=== PATIENT | female | born 1945 | race African-American/Black ===

== ENCOUNTER 2018-04-13 10:43 | Inpatient (IN) | payer MEDICARE, MEDICAID ==
[~2018-04-13] VITALS: Ht 167.6 cm; Wt 73.5 kg
[~2018-04-13 10:43] MED LIST: APIX5TAB PO; CEFT1VIA15 IV; COR12 PO; DIGO-26 PO; FURO-151 MT; IPRA3AMP9 INH
[2018-04-13 13:24] LABS: CLARITY URINE CLEAR (CLEAR); COLOR URINE YELLOW (YELLOW); KETONES URINE NEGATIVE (NEGATIVE); LEUKOCYTE ESTERASE URINE NEGATIVE (NEGATIVE); NITRITE URINE NEGATIVE (NEGATIVE); OCCULT BLOOD URINE NEGATIVE (NEGATIVE); PROTEIN URINE NEGATIVE (NEGATIVE); SPECIFIC GRAVITY URINE 1.004 (1.005-1.030); UROBILINOGEN URINE 0.2 E.U./dL (0.2-1.0)
[2018-04-13 13:37] LABS: *AMPHETAMINES SCREEN URINE NEGATIVE (NEGATIVE); *BARBITURATES SCREEN URINE NEGATIVE (NEGATIVE); *BENZODIAZEPINES SCREEN URINE NEGATIVE (NEGATIVE); *COCAINE SCREEN URINE NEGATIVE (NEGATIVE); CANNABINOID URINE SCREEN NEGATIVE (NEGATIVE); PHENCYCLIDINE URINE SCREEN NEGATIVE (NEGATIVE)
[2018-04-13 13:38] LABS: METHADONE URINE SCREEN NEGATIVE (NEGATIVE); OPIATES URINE SCREEN NEGATIVE (NEGATIVE)
[2018-04-13] MEDS ORDERED: HYDROCODONE/ACETAMINOPHEN 5/325MG TABLET PO PRN (14:30)
[2018-04-13] MEDS ORDERED: ACETAMINOPHEN 650MG/20.3ML UDC GT PRN (14:30)
[2018-04-13] MEDS ORDERED: ACETAMINOPHEN 325MG TABLET PO PRN (14:30)
[2018-04-13] MEDS ORDERED: ONDANSETRON HCL 4MG/2ML VIAL IV PRN (14:30)
[2018-04-13] MEDS ORDERED: MAGNESIUM/ALUMINUM HYDROXIDE/SIMETHICONE 30ML UDC PO PRN (14:30)
[2018-04-13] MEDS ORDERED: ACETAMINOPHEN 650MG SUPP PR PRN (14:30)
[2018-04-13] MEDS ORDERED: IPRATROPIUM/ALBUTEROL 0.5-3(2.5)MG/3ML NEB INH PRN (14:30)
[2018-04-13] MEDS ORDERED: DOCUSATE SODIUM 100MG CAPSULE PO PRN (14:30)
[2018-04-13] MEDS ORDERED: NA PHOS,M-B/NA PHOS,DI-BA ENEMA 118ML PR PRN (14:30)
[2018-04-13] MEDS ORDERED: DIPHENHYDRAMINE 50MG/ML VIAL IV PRN (14:30)
[2018-04-13] MEDS ORDERED: GUAIFENESIN 200MG/10ML SUGAR FREE UDC PO PRN (14:30)
[2018-04-13] MEDS ORDERED: CLONIDINE 0.1MG TABLET PO PRN (14:30)
[2018-04-13 14:49] LABS: BASOPHILS % 1.1 % (0.0-2.0); EOSINOPHILS % 0.8 % (0.0-5.0); HEMATOCRIT. 31.2 % (36.0-48.0); HEMOGLOBIN. 9.9 g/dL (12.0-16.0); LYMPHOCYTES % 43.6 % (20.0-50.0); MEAN CORPUSCULAR HEMOGLOBIN 25.3 pg (28.0-32.0); MEAN CORPUSCULAR VOLUME 79.4 fL (81.0-99.0); MEAN PLATELET VOLUME 9.1 fl (7.4-10.4); MONOCYTES % 12.2 % (2.0-8.0); NEUTROPHILS % 42.3 % (40.0-76.0); PLATELET 105 x1000/uL (130-400); RED BLOOD CELL COUNT 3.93 mill/uL (4.2-5.4); RED CELL DISTRIBUTION WIDTH 20.4 % (11.6-14.6)
[2018-04-13 14:55] LABS: CHLORIDE 106 mEq/L (98-107)
[2018-04-13 14:58] LABS: INR 1.2; PARTIAL THROMBOPLASTIN TIME 30.1 sec (23.4-31.0); PROTHROMBIN TIME 12.2 sec (9.1-11.1)
[2018-04-13 14:59] LABS: ETHANOL BLOOD < 10 mg/dL
[2018-04-13] MEDS ORDERED: FUROSEMIDE 20MG/2ML VIAL IVP ONE (15:15)
[2018-04-13 15:19] LABS: DIGOXIN 0.6 ng/mL (0.9-2.0)
[2018-04-13 16:00] VITALS: BP 100/50
[2018-04-13 16:51] VITALS: BP 100/50
[2018-04-13] MEDS ORDERED: FUROSEMIDE 40MG/4ML VIAL IVP NR (17:45)
[2018-04-13] MEDS: DIGOXIN 125MCG TABLET PO SCH (18:40)
[2018-04-13 19:03] LABS: HEPATITIS B SURFACE ANTIGEN NEGATIVE
[2018-04-13 19:31] LABS: HEPATITIS B CORE AB IGM NEGATIVE
[2018-04-13 19:33] LABS: HEPATITIS A AB IGM NEGATIVE (NEGATIVE)
[2018-04-13 20:00] VITALS: BP 113/62
[2018-04-13] MEDS: CARVEDILOL 12.5MG TABLET PO SCH (20:45)
[2018-04-13] MEDS: IPRATROPIUM/ALBUTEROL 0.5-3(2.5)MG/3ML NEB HHN SCH (20:47)
[2018-04-13] MEDS: SODIUM CHLORIDE 0.9% INJ 3ML FLUSH IVF SCH (20:53)
[2018-04-13] MEDS: HYDROCODONE/ACETAMINOPHEN 10/325MG TABLET PO PRN (20:53)
[2018-04-13] MEDS: TRAZODONE HCL 50MG TABLET PO PRN (23:19)
[2018-04-14] VITALS: BP 102/59
[2018-04-14] MEDS: IPRATROPIUM/ALBUTEROL 0.5-3(2.5)MG/3ML NEB HHN SCH ×3 (00:50→20:52)
[2018-04-14 01:07] LABS: CREATINE KINASE 31 IU/L (26-192)
[2018-04-14 04:00] VITALS: BP 110/62
[2018-04-14] MEDS: SODIUM CHLORIDE 0.9% INJ 3ML FLUSH IVF SCH ×3 (05:44→21:18)
[2018-04-14] MEDS: HYDROCODONE/ACETAMINOPHEN 10/325MG TABLET PO PRN ×2 (05:44→17:33)
[2018-04-14 07:11] LABS: CHLORIDE 105 mEq/L (98-107)
[2018-04-14 07:12] LABS: BASOPHILS % 0.5 % (0.0-2.0); EOSINOPHILS % 0.8 % (0.0-5.0); HEMATOCRIT. 29.1 % (36.0-48.0); HEMOGLOBIN. 9.6 g/dL (12.0-16.0); MEAN CORPUSCULAR HEMOGLOBIN 25.6 pg (28.0-32.0); MEAN CORPUSCULAR VOLUME 78.1 fL (81.0-99.0); MEAN PLATELET VOLUME 9.8 fl (7.4-10.4); MONOCYTES % 11.1 % (2.0-8.0); NEUTROPHILS % 38.6 % (40.0-76.0); PLATELET 113 x1000/uL (130-400); RED BLOOD CELL COUNT 3.73 mill/uL (4.2-5.4)
[2018-04-14 07:21] LABS: LDL CHOLESTEROL 23 mg/dL (5-100)
[2018-04-14 07:22] LABS: CREATINE KINASE 27 IU/L (26-192); HDL CHOLESTEROL 73 mg/dL (40-59)
[2018-04-14 08:00] VITALS: BP 121/68
[2018-04-14] MEDS: FUROSEMIDE 40MG/4ML VIAL IVP SCH (09:09)
[2018-04-14] MEDS: CARVEDILOL 12.5MG TABLET PO SCH ×2 (09:09→21:20)
[2018-04-14 12:00] VITALS: BP 111/57
[2018-04-14 12:06] LABS: TOTAL IRON BINDING CAPACITY 542 ug/dL (250-450)
[2018-04-14 13:10] LABS: T4 FREE 1.44 ng/dL (0.76-1.46)
[2018-04-14 16:00] VITALS: BP 108/49
[2018-04-14 16:34] LABS: CREATINE KINASE 23 IU/L (26-192)
[2018-04-14 16:36] LABS: CREATINE KINASE MB FRACTION < 1.0 ng/mL (0.5-3.6)
[2018-04-14] MEDS: DIGOXIN 125MCG TABLET PO SCH (17:32)
[2018-04-14 20:40] VITALS: BP 127/59
[2018-04-14] MEDS: APIXABAN 5 MG TABLET PO SCH (21:13)
[2018-04-14] MEDS: TRAZODONE HCL 50MG TABLET PO PRN (21:14)
[2018-04-14] MEDS: LOSARTAN POTASSIUM 25 MG TABLET PO SCH (21:16)
[2018-04-14 23:51] LABS: CREATINE KINASE 20 IU/L (26-192)
[2018-04-14 23:52] LABS: CREATINE KINASE MB FRACTION < 1.0 ng/mL (0.5-3.6)
[2018-04-15] VITALS: BP 91/51
[2018-04-15] MEDS: IPRATROPIUM/ALBUTEROL 0.5-3(2.5)MG/3ML NEB HHN SCH ×3 (00:51→12:00)
[2018-04-15 04:00] VITALS: BP 100/57
[2018-04-15] MEDS: SODIUM CHLORIDE 0.9% INJ 3ML FLUSH IVF SCH ×2 (05:52→13:34)
[2018-04-15 07:01] LABS: CREATINE KINASE 23 IU/L (26-192)
[2018-04-15 07:02] LABS: CREATINE KINASE MB FRACTION < 1.0 ng/mL (0.5-3.6)
[2018-04-15 08:00] VITALS: BP 116/76
[2018-04-15] MEDS: APIXABAN 5 MG TABLET PO SCH ×2 (09:10→18:19)
[2018-04-15] MEDS: FUROSEMIDE 40MG/4ML VIAL IVP SCH (09:10)
[2018-04-15] MEDS: LOSARTAN POTASSIUM 25 MG TABLET PO SCH (09:11)
[2018-04-15] MEDS: CARVEDILOL 12.5MG TABLET PO SCH (09:11)
[2018-04-15] MEDS: HYDROCODONE/ACETAMINOPHEN 10/325MG TABLET PO PRN (09:12)
[2018-04-15] MEDS ORDERED: PANTOT AC/MIN OIL/PET HY-PHL OINT 52.5GM (AQUAPHOR) TOP SCH (10:45)
[2018-04-15 12:00] VITALS: BP 99/59
[2018-04-15 16:00] VITALS: BP 118/69
[2018-04-15 16:12] LABS: CHLORIDE 103 mEq/L (98-107); HEMATOCRIT. 30.7 % (36.0-48.0); HEMOGLOBIN. 9.8 g/dL (12.0-16.0); MEAN CORPUSCULAR HEMOGLOBIN 25.5 pg (28.0-32.0); MEAN CORPUSCULAR VOLUME 79.7 fL (81.0-99.0); MEAN PLATELET VOLUME 8.9 fl (7.4-10.4); PLATELET 108 x1000/uL (130-400); RED BLOOD CELL COUNT 3.84 mill/uL (4.2-5.4); RED CELL DISTRIBUTION WIDTH 21.2 % (11.6-14.6)
[2018-04-15 16:16] LABS: AMMONIA 17 uMol/L (<32)
[2018-04-15 16:23] VITALS: BP 118/69
[2018-04-15 17:28] LABS: PLATELET ESTIMATE DECREASED
[2018-04-15] MEDS: DIGOXIN 125MCG TABLET PO SCH (18:19)
[2018-04-15] MEDS ORDERED: FURO-151 MT (19:20)
[2018-04-16] MEDS ORDERED: PANTOT AC/MIN OIL/PET HY-PHL OINT 52.5GM (AQUAPHOR) TOP SCH (09:00)
== END 2018-04-15 19:50 | DRG 432 ==
LOC: ER 10:52 → EDBEDREQSVC 12:33 → 5WST 13:08 → EDBEDREQTM 13:11 → EDBEDREQ 13:11 → ENRESERV 15:25
PROVIDERS: ADMIT Family Medicine; ATTEND Family Medicine
DX: K70.31 Alcoholic cirrhosis of liver with ascites (principal); I50.21 Acute systolic (congestive) heart failure; K85.20 Alcohol induced acute pancreatitis without necrosis or infection; E11.9 Type 2 diabetes mellitus without complications; E78.5 Hyperlipidemia, unspecified; F17.200 Nicotine dependence, unspecified, uncomplicated; I48.91 Unspecified atrial fibrillation; I11.0 Hypertensive heart disease with heart failure; K80.20 Calculus of gallbladder without cholecystitis without obstruction; F10.10 Alcohol abuse, uncomplicated; B19.20 Unspecified viral hepatitis C without hepatic coma; I08.1 Rheumatic disorders of both mitral and tricuspid valves; J45.909 Unspecified asthma, uncomplicated; D25.9 Leiomyoma of uterus, unspecified; J44.9 Chronic obstructive pulmonary disease, unspecified; Z60.2 Problems related to living alone; F19.10 Other psychoactive substance abuse, uncomplicated; D69.6 Thrombocytopenia, unspecified; D63.8 Anemia in other chronic diseases classified elsewhere; Z59.0 Homelessness; Z79.899 Other long term (current) drug therapy
CPT/HCPCS: 36415; 71045; 74176; 76700; 80053; 80061; 80162; 80305; 81003; 82140; 82550; 82553; 82607; 82728; 82746; 83036; 83540; 83550; 83690; 83735; 83880; 84439; 84443; 84484; 85025; 85379; 85610; 85730; 86705; 86709; 86803; 87340; 93005; 93970; 94640; 96374; 99285; G0482; J1940; J7620; A4315

== ENCOUNTER 2018-08-24 19:07 | Inpatient (IN) | payer MEDICARE, MEDICAID ==
[~2018-08-24] VITALS: Ht 165.1 cm; Wt 83.2 kg
[~2018-08-24 19:07] MED LIST changes: -CEFT1VIA15 IV; +CLON0.1T PO; +GABA-529 PO; +HYDR-4001 PO; +LOSA25TA12 PO
[2018-08-24] MEDS ORDERED: NALOXONE HCL 0.4 MG/ML 1ML VIAL IV ONE ×2 (20:45→22:15)
[2018-08-24 21:59] LABS: HEMATOCRIT. 31.9 % (36.0-48.0); HEMOGLOBIN. 10.2 g/dL (12.0-16.0); MEAN CORPUSCULAR HEMOGLOBIN 27.5 pg (28.0-32.0); MEAN CORPUSCULAR VOLUME 86.2 fL (81.0-99.0); MEAN PLATELET VOLUME 8.8 fl (7.4-10.4); PLATELET 127 x1000/uL (130-400); RED CELL DISTRIBUTION WIDTH 20.2 % (11.6-14.6)
[2018-08-24 22:05] LABS: CHLORIDE 103 mEq/L (98-107)
[2018-08-24 22:05] LABS: CLARITY URINE CLOUDY (CLEAR); COLOR URINE DARK YELLOW (YELLOW); KETONES URINE TRACE (NEGATIVE); LEUKOCYTE ESTERASE URINE TRACE (NEGATIVE); NITRITE URINE NEGATIVE (NEGATIVE); OCCULT BLOOD URINE NEGATIVE (NEGATIVE); PROTEIN URINE 1+ (NEGATIVE)
[2018-08-24 22:07] LABS: INR 1.3; PARTIAL THROMBOPLASTIN TIME 37.2 sec (23.4-31.0)
[2018-08-24 22:08] LABS: ETHANOL BLOOD < 10 mg/dL
[2018-08-24 22:18] LABS: *AMPHETAMINES SCREEN URINE NEGATIVE (NEGATIVE); *BARBITURATES SCREEN URINE NEGATIVE (NEGATIVE); *BENZODIAZEPINES SCREEN URINE NEGATIVE (NEGATIVE)
[2018-08-24 22:20] LABS: *COCAINE SCREEN URINE NEGATIVE (NEGATIVE); CANNABINOID URINE SCREEN NEGATIVE (NEGATIVE); METHADONE URINE SCREEN NEGATIVE (NEGATIVE); OPIATES URINE SCREEN PRESUMTIVE POSITIVE (NEGATIVE); PHENCYCLIDINE URINE SCREEN NEGATIVE (NEGATIVE)
[2018-08-24 22:27] LABS: PLATELET ESTIMATE DECREASED
[2018-08-24] MEDS ORDERED: FUROSEMIDE 100MG/10ML VIAL IV STA (22:58)
[2018-08-24] MEDS ORDERED: DEXTROSE 50% WATER 50ML SYRINGE IV ONE (23:00)
[2018-08-24] MEDS ORDERED: INSULIN REGULAR (HUMULIN R) 300UNITS/3ML IV ONE (23:00)
[2018-08-25] VITALS (18 sets, daily range): BP systolic 67–136; BP diastolic 19–83
[2018-08-25] MEDS ORDERED: CLONIDINE 0.1MG TABLET PO PRN
[2018-08-25] MEDS ORDERED: LORAZEPAM 2MG/ML CPJ IV PRN
[2018-08-25] MEDS ORDERED: HYDROMORPHONE HCL/PF 2MG/ML CPJ IV PRN
[2018-08-25] MEDS ORDERED: SODIUM CHLORIDE 0.9% 1,000 ML IV SCH (03:57)
[2018-08-25] MEDS: PANTOPRAZOLE SODIUM 40 MG/VIAL IV SCH ×2 (12:48→21:05)
[2018-08-25 13:31] LABS: HEMATOCRIT. 26.9 % (36.0-48.0); HEMOGLOBIN. 8.8 g/dL (12.0-16.0); MEAN CORPUSCULAR HEMOGLOBIN 27.7 pg (28.0-32.0); MEAN CORPUSCULAR VOLUME 85.3 fL (81.0-99.0); PLATELET 140 x1000/uL (130-400); RED BLOOD CELL COUNT 3.16 mill/uL (4.2-5.4)
[2018-08-25 13:54] LABS: PLATELET ESTIMATE NORMAL
[2018-08-25 14:10] LABS: FOLIC ACID (FOLATE) SERUM 9.5 ng/mL (>5.38)
[2018-08-25 14:40] LABS: T4 FREE 1.52 ng/dL (0.76-1.46)
[2018-08-25] MEDS ORDERED: DEXTROSE 50% WATER 50ML SYRINGE IV NR (15:30)
[2018-08-25] MEDS ORDERED: SODIUM BICARBONATE 8.4% 1 MEQ/ML 50ML SYR IV NR (15:30)
[2018-08-25] MEDS ORDERED: INSULIN REGULAR (HUMULIN R) UD 100 UNITS/ML SYR IV NR (17:00)
[2018-08-25] MEDS ORDERED: SODIUM POLYSTYRENE SULFONATE 15 G/60 ML BOT PO NR (17:00)
[2018-08-25] MEDS: CEFTRIAXONE 1 G PREMIX 50 ML IV SCH (18:30)
[2018-08-25] MEDS: SODIUM CHLORIDE 0.9% 1,000 ML IV SCH ×2 (18:30→22:04)
[2018-08-25 20:39] LABS: BG BASE EXCESS -8.2 mmol/L (-2.0-2.0); BG CARBOXYHEMOGLOBIN 1.1 % (0.5-1.5); BG DEOXYHEMOGLOBIN 1.3 % (0.0-5.0); BG FRACTION INSPIRED OXYGEN 36; BG HCO3 ACT 15.9 mmol/L (22.0-26.0); BG METHEMOGLOBIN 0.2 % (0.0-1.5); BG OXYGEN SATURATION 98.7 % (92.0-98.5); BG OXYHEMOGLOBIN 97.4 % (94.0-97.0); BG PCO2 27.7 mmHg (35.0-45.0); BG PH 7.376 (7.350-7.450); BG PO2 137.7 mmHg (75.0-100.0); BG SAMPLE SITE RIGHT RADIAL; BG TOTAL HEMOGLOBIN 9.5 g/dL (12.0-18.0); BG VENT MODE NASAL CANNULA
[2018-08-25] MEDS ORDERED: PHENYLEPHRINE 20 MG in DEXT 5% WATER 498 ML IV PRN (21:30)
[2018-08-25] MEDS ORDERED: SODIUM POLYSTYRENE SULFONATE 15 G/60 ML BOT PO SCH ×2 (22:00→23:00)
[2018-08-25] MEDS ORDERED: NOREPINEPHRINE 4 MG in DEXT 5% WATER 246 ML IV PRN (23:00)
[2018-08-25 23:08] LABS: HEMATOCRIT. 30.9 % (36.0-48.0); HEMOGLOBIN. 9.9 g/dL (12.0-16.0); MEAN CORPUSCULAR HEMOGLOBIN 27.2 pg (28.0-32.0); MEAN CORPUSCULAR VOLUME 84.5 fL (81.0-99.0); MEAN PLATELET VOLUME 8.9 fl (7.4-10.4); PLATELET 140 x1000/uL (130-400); RED BLOOD CELL COUNT 3.65 mill/uL (4.2-5.4); RED CELL DISTRIBUTION WIDTH 19.5 % (11.6-14.6)
[2018-08-25 23:13] LABS: CHLORIDE 104 mEq/L (98-107)
[2018-08-25] MEDS ORDERED: SODIUM BICARBONATE 8.4% 1 MEQ/ML 50ML SYR IV SCH (23:15)
[2018-08-25 23:24] LABS: CREATINE KINASE 521 IU/L (26-192)
[2018-08-25] MEDS ORDERED: FUROSEMIDE 20MG/2ML VIAL IVP SCH (23:30)
[2018-08-25 23:51] LABS: PLATELET ESTIMATE NORMAL
[2018-08-26] VITALS (149 sets, daily range): BP systolic 65–135; BP diastolic 20–85
[2018-08-26] MEDS ORDERED: NOREPINEPHRINE 4 MG in DEXT 5% WATER 246 ML IV PRN (00:06)
[2018-08-26] MEDS ORDERED: PHENYLEPHRINE 40 MG in DEXT 5% WATER 500 ML IV ONE (00:15)
[2018-08-26] MEDS ORDERED: INSULIN REGULAR (HUMULIN R) 300UNITS/3ML IV SCH (00:30)
[2018-08-26] MEDS ORDERED: PHENYLEPHRINE 80 MG in DEXT 5% WATER 492 ML IV PRN (00:30)
[2018-08-26] MEDS ORDERED: FUROSEMIDE 40MG/4ML VIAL IVP SCH (00:30)
[2018-08-26] MEDS ORDERED: DEXTROSE 50% WATER 50ML SYRINGE IV SCH (00:30)
[2018-08-26] MEDS ORDERED: SODIUM POLYSTYRENE SULFONATE 15 G/60 ML BOT PO SCH (02:00)
[2018-08-26 02:44] LABS: BG CARBOXYHEMOGLOBIN 0.7 % (0.5-1.5); BG DEOXYHEMOGLOBIN 9.4 % (0.0-5.0); BG FRACTION INSPIRED OXYGEN 44; BG HCO3 ACT 19.3 mmol/L (22.0-26.0); BG METHEMOGLOBIN 0.3 % (0.0-1.5); BG OXYGEN SATURATION 90.5 % (92.0-98.5); BG OXYHEMOGLOBIN 89.6 % (94.0-97.0); BG PCO2 42.1 mmHg (35.0-45.0); BG PH 7.279 (7.350-7.450); BG PO2 64.9 mmHg (75.0-100.0); BG SAMPLE SITE LEFT RADIAL; BG TOTAL HEMOGLOBIN 10.4 g/dL (12.0-18.0); BG VENT MODE NASAL CANNULA
[2018-08-26] MEDS: NOREPINEPHRINE 32 MG in DEXT 5% WATER 468 ML IV PRN (03:50)
[2018-08-26] MEDS: PROPOFOL 10MG/ML 100ML 100 ML IV PRN ×2 (05:00→18:57)
[2018-08-26 05:38] LABS: BG BASE EXCESS -8.3 mmol/L (-2.0-2.0); BG CARBOXYHEMOGLOBIN 0.8 % (0.5-1.5); BG DEOXYHEMOGLOBIN 10.6 % (0.0-5.0); BG FRACTION INSPIRED OXYGEN 100; BG METHEMOGLOBIN 0.5 % (0.0-1.5); BG OXYGEN SATURATION 89.3 % (92.0-98.5); BG OXYHEMOGLOBIN 88.1 % (94.0-97.0); BG PCO2 53.7 mmHg (35.0-45.0); BG PEEP (cmH2O) 0 cmH2O; BG PH 7.188 (7.350-7.450); BG PO2 65.7 mmHg (75.0-100.0); BG SAMPLE SITE LEFT FEMORAL; BG TIDAL VOLUME(mL) 500 mL; BG TOTAL HEMOGLOBIN 11.2 g/dL (12.0-18.0); BG VENT MODE VENT - A/C; BG VENT RATE 16 set
[2018-08-26] MEDS ORDERED: SODIUM BICARBONATE 8.4% 1 MEQ/ML 50ML SYR IV NR (05:45)
[2018-08-26 06:56] LABS: HEMATOCRIT. 32.8 % (36.0-48.0); HEMOGLOBIN. 10.7 g/dL (12.0-16.0); MEAN CORPUSCULAR HEMOGLOBIN 28.1 pg (28.0-32.0); MEAN PLATELET VOLUME 8.4 fl (7.4-10.4); PLATELET 136 x1000/uL (130-400); RED BLOOD CELL COUNT 3.81 mill/uL (4.2-5.4)
[2018-08-26 08:40] LABS: BG BASE EXCESS -7.1 mmol/L (-2.0-2.0); BG CARBOXYHEMOGLOBIN 0.3 % (0.5-1.5); BG DEOXYHEMOGLOBIN 0.7 % (0.0-5.0); BG FRACTION INSPIRED OXYGEN 100; BG HCO3 ACT 19.3 mmol/L (22.0-26.0); BG METHEMOGLOBIN 0.5 % (0.0-1.5); BG OXYGEN SATURATION 99.3 % (92.0-98.5); BG OXYHEMOGLOBIN 98.5 % (94.0-97.0); BG PCO2 42.8 mmHg (35.0-45.0); BG PH 7.273 (7.350-7.450); BG PO2 231.3 mmHg (75.0-100.0); BG SAMPLE SITE RIGHT RADIAL; BG TIDAL VOLUME(mL) 500 mL; BG TOTAL HEMOGLOBIN 11.4 g/dL (12.0-18.0); BG VENT MODE VENT - A/C; BG VENT RATE 16 set
[2018-08-26] MEDS: PANTOPRAZOLE SODIUM 40 MG/VIAL IV SCH ×2 (09:31→21:13)
[2018-08-26] MEDS ORDERED: ETOMIDATE 2MG/ML 10ML VIAL IV ONE (13:32)
[2018-08-26] MEDS ORDERED: VECURONIUM BROMIDE 10 MG/VIAL IV ONE (13:32)
[2018-08-26 15:05] LABS: PLATELET ESTIMATE NORMAL
[2018-08-26] MEDS: PHENYLEPHRINE 80 MG in DEXT 5% WATER 492 ML IV PRN ×2 (15:56→23:53)
[2018-08-26] MEDS: CEFTRIAXONE 1 G PREMIX 50 ML IV SCH (18:23)
[2018-08-26] MEDS: FERROUS SULFATE 300MG/5ML UDC PO SCH ×2 (18:23→18:24)
[2018-08-26] MEDS ORDERED: PROPOFOL 10MG/ML 100ML 100 ML IV PRN (18:30)
[2018-08-26] MEDS ORDERED: VANCOMYCIN 1250MG in DEXTROSE 5% WATER 250ML IV SCH (20:00)
[2018-08-27] VITALS (120 sets, daily range): BP systolic 69–130; BP diastolic 26–85
[2018-08-27] MEDS: NOREPINEPHRINE 32 MG in DEXT 5% WATER 468 ML IV PRN (01:01)
[2018-08-27 05:20] LABS: BASOPHILS % 0.1 % (0.0-2.0); EOSINOPHILS % 0.2 % (0.0-5.0); HEMATOCRIT. 32.5 % (36.0-48.0); HEMOGLOBIN. 10.6 g/dL (12.0-16.0); LYMPHOCYTES % 7.8 % (20.0-50.0); MEAN CORPUSCULAR VOLUME 82.7 fL (81.0-99.0); MEAN PLATELET VOLUME 8.6 fl (7.4-10.4); MONOCYTES % 9.9 % (2.0-8.0); PLATELET 98 x1000/uL (130-400); RED BLOOD CELL COUNT 3.93 mill/uL (4.2-5.4); RED CELL DISTRIBUTION WIDTH 19.7 % (11.6-14.6)
[2018-08-27 05:28] LABS: CHLORIDE 104 mEq/L (98-107)
[2018-08-27 06:31] LABS: CREATINE KINASE MB FRACTION 4.5 ng/mL (0.5-3.6)
[2018-08-27] MEDS: PHENYLEPHRINE 80 MG in DEXT 5% WATER 492 ML IV PRN ×2 (07:24→15:01)
[2018-08-27 08:03] LABS: BG BASE EXCESS -2.2 mmol/L (-2.0-2.0); BG CARBOXYHEMOGLOBIN 0.6 % (0.5-1.5); BG DEOXYHEMOGLOBIN 1.2 % (0.0-5.0); BG FRACTION INSPIRED OXYGEN 65; BG METHEMOGLOBIN 0.3 % (0.0-1.5); BG OXYGEN SATURATION 98.8 % (92.0-98.5); BG OXYHEMOGLOBIN 97.9 % (94.0-97.0); BG PCO2 35.5 mmHg (35.0-45.0); BG SAMPLE SITE RIGHT BRACHIAL; BG TIDAL VOLUME(mL) 500 mL; BG TOTAL HEMOGLOBIN 11.3 g/dL (12.0-18.0); BG VENT MODE VENT - A/C; BG VENT RATE 16 set
[2018-08-27] MEDS: PANTOPRAZOLE SODIUM 40 MG/VIAL IV SCH ×2 (08:07→21:35)
[2018-08-27] MEDS ORDERED: IPRATROPIUM/ALBUTEROL 0.5-3(2.5)MG/3ML NEB HHN PRN (10:15)
[2018-08-27] MEDS ORDERED: PROPOFOL 10MG/ML 100ML 100 ML IV PRN (10:15)
[2018-08-27] MEDS: IPRATROPIUM/ALBUTEROL 0.5-3(2.5)MG/3ML NEB HHN SCH ×3 (11:35→20:42)
[2018-08-27] MEDS: FERROUS SULFATE 300MG/5ML UDC PO SCH ×3 (13:20→17:45)
[2018-08-27] MEDS ORDERED: VANCOMYCIN 1250MG in DEXTROSE 5% WATER 250ML IV NR (17:00)
[2018-08-27] MEDS: AMIODARONE HCL 900 MG in DEXT 5% WATER 482 ML IV PRN (17:20)
[2018-08-27] MEDS: CEFTRIAXONE 1 G PREMIX 50 ML IV SCH (17:28)
[2018-08-28] VITALS (77 sets, daily range): BP systolic 77–137; BP diastolic 35–74
[2018-08-28] MEDS: IPRATROPIUM/ALBUTEROL 0.5-3(2.5)MG/3ML NEB HHN SCH ×4 (00:29→12:06)
[2018-08-28] MEDS: NAFCILLIN SODIUM 2,000 MG in SODIUM CHLORIDE 0.9% 100 ML IV SCH ×3 (07:01→18:15)
[2018-08-28 08:04] LABS: HEMOGLOBIN. 10.7 g/dL (12.0-16.0); MEAN CORPUSCULAR HEMOGLOBIN 27.3 pg (28.0-32.0); MEAN CORPUSCULAR VOLUME 82.2 fL (81.0-99.0); MEAN PLATELET VOLUME 9.5 fl (7.4-10.4); PLATELET 95 x1000/uL (130-400); RED CELL DISTRIBUTION WIDTH 19.5 % (11.6-14.6)
[2018-08-28 08:49] LABS: BG BASE EXCESS -1.1 mmol/L (-2.0-2.0); BG DEOXYHEMOGLOBIN 1.5 % (0.0-5.0); BG FRACTION INSPIRED OXYGEN 45; BG HCO3 ACT 22.1 mmol/L (22.0-26.0); BG METHEMOGLOBIN 0.3 % (0.0-1.5); BG OXYGEN SATURATION 98.5 % (92.0-98.5); BG OXYHEMOGLOBIN 98.2 % (94.0-97.0); BG PCO2 31.8 mmHg (35.0-45.0); BG PH 7.459 (7.350-7.450); BG PO2 126.2 mmHg (75.0-100.0); BG SAMPLE SITE RIGHT RADIAL; BG TIDAL VOLUME(mL) 500 mL; BG TOTAL HEMOGLOBIN 11.2 g/dL (12.0-18.0); BG VENT MODE VENT - A/C; BG VENT RATE 16 set
[2018-08-28 09:46] LABS: PLATELET ESTIMATE DECREASED
[2018-08-28] MEDS: FERROUS SULFATE 300MG/5ML UDC PO SCH ×3 (09:47→18:15)
[2018-08-28] MEDS: PANTOPRAZOLE SODIUM 40 MG/VIAL IV SCH ×2 (09:47→21:19)
[2018-08-28] MEDS ORDERED: VANCOMYCIN 1 G PREMIX 200 ML IV SCH (10:00)
[2018-08-28] MEDS ORDERED: POTASSIUM CHLORIDE 20MEQ TABLET SR PO NR (11:45)
[2018-08-28] MEDS: PROPOFOL 10MG/ML 100ML 100 ML IV PRN ×2 (11:54→21:17)
[2018-08-28] MEDS: BLOOD SUGAR DIAGNOSTIC STRIP TEST SCH ×2 (12:46→18:23)
[2018-08-28] MEDS ORDERED: MAGNESIUM 2 G PREMIX 50 ML IV SCH (13:00)
[2018-08-28 14:51] LABS: HEPATITIS B SURFACE ANTIGEN NEGATIVE
[2018-08-28 15:21] LABS: HEPATITIS A AB IGM NEGATIVE (NEGATIVE)
[2018-08-28] MEDS: IPRATROPIUM BROMIDE (0.02%) 0.5MG/2.5ML NEB HHN SCH ×2 (15:41→21:01)
[2018-08-28] MEDS: NOREPINEPHRINE 32 MG in DEXT 5% WATER 468 ML IV PRN (22:28)
[2018-08-28] MEDS: PHENYLEPHRINE 80 MG in DEXT 5% WATER 492 ML IV PRN (22:32)
[2018-08-29] VITALS (52 sets, daily range): BP systolic 92–115; BP diastolic 38–69
[2018-08-29] MEDS: IPRATROPIUM BROMIDE (0.02%) 0.5MG/2.5ML NEB HHN SCH ×6 (00:42→20:33)
[2018-08-29] MEDS: NOREPINEPHRINE 32 MG in DEXT 5% WATER 468 ML IV PRN (01:01)
[2018-08-29] MEDS: PHENYLEPHRINE 80 MG in DEXT 5% WATER 492 ML IV PRN ×3 (01:02→21:38)
[2018-08-29] MEDS: NAFCILLIN SODIUM 2,000 MG in SODIUM CHLORIDE 0.9% 100 ML IV SCH ×4 (01:03→18:23)
[2018-08-29] MEDS: BLOOD SUGAR DIAGNOSTIC STRIP TEST SCH ×4 (05:34→18:03)
[2018-08-29] MEDS: PROPOFOL 10MG/ML 100ML 100 ML IV PRN ×3 (06:54→21:37)
[2018-08-29 07:42] LABS: BG FRACTION INSPIRED OXYGEN 40; BG SAMPLE SITE RIGHT RADIAL; BG TIDAL VOLUME(mL) 500 mL; BG VENT MODE VENT - A/C; BG VENT RATE 12 set
[2018-08-29] MEDS: PANTOPRAZOLE SODIUM 40 MG/VIAL IV SCH ×2 (09:42→21:38)
[2018-08-29] MEDS: FERROUS SULFATE 300MG/5ML UDC PO SCH ×3 (09:42→18:32)
[2018-08-29 11:16] LABS: BG PH 7.481 (7.350-7.450)
[2018-08-29 11:17] LABS: BG PCO2 32.9 mmHg (35.0-45.0)
[2018-08-29 11:19] LABS: BG BASE EXCESS 0.9 mmol/L (-2.0-2.0); BG TOTAL HEMOGLOBIN 10.9 g/dL (12.0-18.0)
[2018-08-29 11:20] LABS: BG CARBOXYHEMOGLOBIN 0.1 % (0.5-1.5); BG OXYHEMOGLOBIN 98.1 % (94.0-97.0)
[2018-08-29 11:22] LABS: BG OXYGEN SATURATION 98.2 % (92.0-98.5)
[2018-08-29 11:23] LABS: BG DEOXYHEMOGLOBIN 1.8 % (0.0-5.0)
[2018-08-30] VITALS (70 sets, daily range): BP systolic 74–132; BP diastolic 40–92
[2018-08-30] MEDS: BLOOD SUGAR DIAGNOSTIC STRIP TEST SCH ×4 (00:33→18:16)
[2018-08-30] MEDS: NAFCILLIN SODIUM 2,000 MG in SODIUM CHLORIDE 0.9% 100 ML IV SCH ×4 (00:33→18:19)
[2018-08-30] MEDS: IPRATROPIUM BROMIDE (0.02%) 0.5MG/2.5ML NEB HHN SCH ×6 (00:33→20:23)
[2018-08-30] MEDS: PROPOFOL 10MG/ML 100ML 100 ML IV PRN ×3 (04:49→20:15)
[2018-08-30 05:17] LABS: BASOPHILS % 0.6 % (0.0-2.0); EOSINOPHILS % 0.2 % (0.0-5.0); HEMATOCRIT. 31.8 % (36.0-48.0); HEMOGLOBIN. 10.3 g/dL (12.0-16.0); LYMPHOCYTES % 9.3 % (20.0-50.0); MEAN CORPUSCULAR HEMOGLOBIN 26.3 pg (28.0-32.0); MEAN CORPUSCULAR VOLUME 81.4 fL (81.0-99.0); MEAN PLATELET VOLUME 8.3 fl (7.4-10.4); MONOCYTES % 10.5 % (2.0-8.0); NEUTROPHILS % 79.4 % (40.0-76.0); PLATELET 83 x1000/uL (130-400); RED BLOOD CELL COUNT 3.91 mill/uL (4.2-5.4); RED CELL DISTRIBUTION WIDTH 19.9 % (11.6-14.6)
[2018-08-30 05:24] LABS: CHLORIDE 102 mEq/L (98-107)
[2018-08-30 05:30] LABS: PHOSPHORUS 1.6 mg/dL (2.5-4.9)
[2018-08-30] MEDS: PHENYLEPHRINE 80 MG in DEXT 5% WATER 492 ML IV PRN ×2 (05:59→18:16)
[2018-08-30 08:17] LABS: HIV SCREEN 4G Non Reactive (Non Reactive)
[2018-08-30 09:49] LABS: BG BASE EXCESS 4.3 mmol/L (-2.0-2.0); BG CARBOXYHEMOGLOBIN 0.9 % (0.5-1.5); BG DEOXYHEMOGLOBIN 1.3 % (0.0-5.0); BG FRACTION INSPIRED OXYGEN 40; BG HCO3 ACT 27.8 mmol/L (22.0-26.0); BG METHEMOGLOBIN 0.4 % (0.0-1.5); BG OXYGEN SATURATION 98.7 % (92.0-98.5); BG OXYHEMOGLOBIN 97.4 % (94.0-97.0); BG PCO2 37.7 mmHg (35.0-45.0); BG PH 7.486 (7.350-7.450); BG PO2 123.2 mmHg (75.0-100.0); BG SAMPLE SITE RIGHT RADIAL; BG TIDAL VOLUME(mL) 500 mL; BG TOTAL HEMOGLOBIN 11.2 g/dL (12.0-18.0); BG VENT MODE VENT - A/C; BG VENT RATE 12 set
[2018-08-30] MEDS: PANTOPRAZOLE SODIUM 40 MG/VIAL IV SCH ×2 (10:14→20:14)
[2018-08-30] MEDS: FERROUS SULFATE 300MG/5ML UDC PO SCH ×3 (10:14→18:20)
[2018-08-30] MEDS: POTASSIUM CHLORIDE 20MEQ/PACKET NG SCH ×2 (10:15→18:16)
[2018-08-30] MEDS ORDERED: POTASSIUM PHOS,M-BASIC-D-BASIC 20 MMOL in DEXT 5% WATER 243.3333 ML IV ONE (13:00)
[2018-08-30] MEDS: MIDODRINE HCL 5MG TABLET PO SCH ×2 (13:11→17:00)
[2018-08-30] MEDS: POTASSIUM PHOS,M-BASIC-D-BASIC 20 MMOL in DEXT 5% WATER 243.3333 ML IV SCH ×2 (15:50→20:14)
[2018-08-30] MEDS: ACETAMINOPHEN 325MG TABLET PO PRN (18:15)
[2018-08-30] MEDS: POTASSIUM CHLORIDE 20MEQ/PACKET PO SCH (20:14)
[2018-08-31] VITALS (86 sets, daily range): BP systolic 72–119; BP diastolic 35–75
[2018-08-31] MEDS: IPRATROPIUM BROMIDE (0.02%) 0.5MG/2.5ML NEB HHN SCH ×6 (00:24→20:30)
[2018-08-31] MEDS: NAFCILLIN SODIUM 2,000 MG in SODIUM CHLORIDE 0.9% 100 ML IV SCH ×5 (00:33→23:46)
[2018-08-31] MEDS: BLOOD SUGAR DIAGNOSTIC STRIP TEST SCH ×5 (00:33→23:46)
[2018-08-31] MEDS: PROPOFOL 10MG/ML 100ML 100 ML IV PRN (03:05)
[2018-08-31] MEDS: PHENYLEPHRINE 80 MG in DEXT 5% WATER 492 ML IV PRN ×3 (03:12→22:49)
[2018-08-31] MEDS: NOREPINEPHRINE 32 MG in DEXT 5% WATER 468 ML IV PRN (03:15)
[2018-08-31 07:43] LABS: BG BASE EXCESS 4.2 mmol/L (-2.0-2.0); BG CARBOXYHEMOGLOBIN 0.8 % (0.5-1.5); BG DEOXYHEMOGLOBIN 3.9 % (0.0-5.0); BG FRACTION INSPIRED OXYGEN 40; BG HCO3 ACT 26.2 mmol/L (22.0-26.0); BG METHEMOGLOBIN 0.3 % (0.0-1.5); BG OXYGEN SATURATION 96.1 % (92.0-98.5); BG PCO2 30.9 mmHg (35.0-45.0); BG PH 7.546 (7.350-7.450); BG PO2 69.6 mmHg (75.0-100.0); BG SAMPLE SITE RIGHT BRACHIAL; BG TIDAL VOLUME(mL) 500 mL; BG TOTAL HEMOGLOBIN 11.8 g/dL (12.0-18.0); BG VENT MODE VENT - A/C; BG VENT RATE 12 set
[2018-08-31 08:14] LABS: BASOPHILS % 1.3 % (0.0-2.0); EOSINOPHILS % 0.1 % (0.0-5.0); HEMATOCRIT. 32.3 % (36.0-48.0); HEMOGLOBIN. 10.6 g/dL (12.0-16.0); LYMPHOCYTES % 11.5 % (20.0-50.0); MEAN CORPUSCULAR VOLUME 82.5 fL (81.0-99.0); MEAN PLATELET VOLUME 8.9 fl (7.4-10.4); MONOCYTES % 8.1 % (2.0-8.0); PLATELET 106 x1000/uL (130-400); RED BLOOD CELL COUNT 3.92 mill/uL (4.2-5.4); RED CELL DISTRIBUTION WIDTH 20.4 % (11.6-14.6)
[2018-08-31 08:22] LABS: CHLORIDE 102 mEq/L (98-107)
[2018-08-31] MEDS: PANTOPRAZOLE SODIUM 40 MG/VIAL IV SCH ×2 (08:42→22:49)
[2018-08-31] MEDS: POTASSIUM CHLORIDE 20MEQ/PACKET PO SCH (08:42)
[2018-08-31] MEDS: MIDODRINE HCL 5MG TABLET PO SCH ×3 (08:42→17:39)
[2018-08-31] MEDS: FERROUS SULFATE 300MG/5ML UDC PO SCH ×3 (08:42→17:40)
[2018-08-31] MEDS ORDERED: PROPOFOL 10MG/ML 100ML 100 ML IV PRN (10:45)
[2018-08-31] MEDS ORDERED: LORAZEPAM 2MG/ML CPJ IV PRN (10:45)
[2018-08-31] MEDS ORDERED: LACTOBACILLUS GG CAPSULE PO SCH (16:45)
[2018-08-31] MEDS: LACTULOSE 20G/30ML UDC PO SCH (17:40)
[2018-08-31] MEDS: ONDANSETRON HCL 4MG/2ML INJ IV PRN (23:45)
[2018-09-01] VITALS (89 sets, daily range): BP systolic 78–135; BP diastolic 40–81
[2018-09-01] MEDS: IPRATROPIUM BROMIDE (0.02%) 0.5MG/2.5ML NEB HHN SCH ×6 (04:36→22:14)
[2018-09-01 05:35] LABS: BASOPHILS % 1.6 % (0.0-2.0); EOSINOPHILS % 0.1 % (0.0-5.0); HEMATOCRIT. 32.3 % (36.0-48.0); HEMOGLOBIN. 10.4 g/dL (12.0-16.0); LYMPHOCYTES % 8.4 % (20.0-50.0); MEAN CORPUSCULAR HEMOGLOBIN 26.5 pg (28.0-32.0); MEAN PLATELET VOLUME 8.9 fl (7.4-10.4); MONOCYTES % 6.8 % (2.0-8.0); NEUTROPHILS % 83.1 % (40.0-76.0); PLATELET 116 x1000/uL (130-400); RED BLOOD CELL COUNT 3.94 mill/uL (4.2-5.4); RED CELL DISTRIBUTION WIDTH 20.2 % (11.6-14.6)
[2018-09-01 05:42] LABS: CHLORIDE 101 mEq/L (98-107)
[2018-09-01] MEDS: PHENYLEPHRINE 80 MG in DEXT 5% WATER 492 ML IV PRN ×3 (06:37→21:37)
[2018-09-01] MEDS: NAFCILLIN SODIUM 2,000 MG in SODIUM CHLORIDE 0.9% 100 ML IV SCH ×4 (06:38→23:45)
[2018-09-01] MEDS: BLOOD SUGAR DIAGNOSTIC STRIP TEST SCH ×4 (06:38→23:46)
[2018-09-01] MEDS: POTASSIUM CHLORIDE 20MEQ/PACKET PO SCH (07:14)
[2018-09-01 08:36] LABS: BG BASE EXCESS 2.7 mmol/L (-2.0-2.0); BG CARBOXYHEMOGLOBIN 0.1 % (0.5-1.5); BG DEOXYHEMOGLOBIN 1.1 % (0.0-5.0); BG FRACTION INSPIRED OXYGEN 40; BG METHEMOGLOBIN 0.3 % (0.0-1.5); BG OXYGEN SATURATION 98.9 % (92.0-98.5); BG OXYHEMOGLOBIN 98.5 % (94.0-97.0); BG PCO2 30.7 mmHg (35.0-45.0); BG PH 7.529 (7.350-7.450); BG PO2 162.8 mmHg (75.0-100.0); BG SAMPLE SITE LEFT RADIAL; BG TIDAL VOLUME(mL) 500 mL; BG TOTAL HEMOGLOBIN 10.7 g/dL (12.0-18.0); BG VENT MODE VENT - A/C; BG VENT RATE 14 set
[2018-09-01] MEDS: LACTULOSE 20G/30ML UDC PO SCH (09:16)
[2018-09-01] MEDS: FERROUS SULFATE 300MG/5ML UDC PO SCH ×3 (09:16→17:11)
[2018-09-01] MEDS: PANTOPRAZOLE SODIUM 40 MG/VIAL IV SCH ×2 (09:16→21:23)
[2018-09-01] MEDS ORDERED: LORAZEPAM 2MG/ML CPJ IV PRN (10:45)
[2018-09-01] MEDS: ENOXAPARIN 100MG/ML SYR SUBCUT SCH ×2 (14:16→23:54)
[2018-09-01] MEDS: MIDODRINE HCL 5MG TABLET PO SCH ×2 (14:17→17:11)
[2018-09-01] MEDS ORDERED: POTASSIUM CHLORIDE 20MEQ/PACKET PO NR (15:45)
[2018-09-01] MEDS: FUROSEMIDE 40MG/4ML VIAL IVP SCH (17:11)
[2018-09-02] VITALS (86 sets, daily range): BP systolic 75–133; BP diastolic 35–77
[2018-09-02] MEDS: IPRATROPIUM BROMIDE (0.02%) 0.5MG/2.5ML NEB HHN SCH ×6 (00:22→20:29)
[2018-09-02] MEDS: NOREPINEPHRINE 32 MG in DEXT 5% WATER 468 ML IV PRN (01:27)
[2018-09-02] MEDS: NAFCILLIN SODIUM 2,000 MG in SODIUM CHLORIDE 0.9% 100 ML IV SCH ×3 (05:32→17:58)
[2018-09-02] MEDS: BLOOD SUGAR DIAGNOSTIC STRIP TEST SCH ×3 (05:33→17:58)
[2018-09-02] MEDS: PHENYLEPHRINE 80 MG in DEXT 5% WATER 492 ML IV PRN ×2 (05:35→14:36)
[2018-09-02 06:42] LABS: BASOPHILS % 0.6 % (0.0-2.0); EOSINOPHILS % 0.3 % (0.0-5.0); HEMATOCRIT. 31.1 % (36.0-48.0); HEMOGLOBIN. 10.1 g/dL (12.0-16.0); LYMPHOCYTES % 7.9 % (20.0-50.0); MEAN CORPUSCULAR HEMOGLOBIN 27.1 pg (28.0-32.0); MEAN CORPUSCULAR VOLUME 83.7 fL (81.0-99.0); MEAN PLATELET VOLUME 9.1 fl (7.4-10.4); MONOCYTES % 7.6 % (2.0-8.0); NEUTROPHILS % 83.6 % (40.0-76.0); PLATELET 164 x1000/uL (130-400); RED BLOOD CELL COUNT 3.72 mill/uL (4.2-5.4); RED CELL DISTRIBUTION WIDTH 21.3 % (11.6-14.6)
[2018-09-02 06:48] LABS: CHLORIDE 103 mEq/L (98-107)
[2018-09-02 08:43] LABS: BG BASE EXCESS 2.8 mmol/L (-2.0-2.0); BG CARBOXYHEMOGLOBIN 0.6 % (0.5-1.5); BG FRACTION INSPIRED OXYGEN 40; BG METHEMOGLOBIN 0.3 % (0.0-1.5); BG OXYHEMOGLOBIN 98.1 % (94.0-97.0); BG PCO2 34.8 mmHg (35.0-45.0); BG PH 7.492 (7.350-7.450); BG PO2 134.8 mmHg (75.0-100.0); BG SAMPLE SITE RIGHT RADIAL; BG TIDAL VOLUME(mL) 500 mL; BG TOTAL HEMOGLOBIN 10.3 g/dL (12.0-18.0); BG VENT MODE VENT - A/C; BG VENT RATE 10 set
[2018-09-02] MEDS: POTASSIUM CHLORIDE 20MEQ/PACKET PO SCH ×2 (08:58→16:13)
[2018-09-02] MEDS: PANTOPRAZOLE SODIUM 40 MG/VIAL IV SCH ×2 (08:58→21:32)
[2018-09-02] MEDS: LACTULOSE 20G/30ML UDC PO SCH ×2 (08:58→16:12)
[2018-09-02] MEDS: FERROUS SULFATE 300MG/5ML UDC PO SCH ×3 (08:58→17:58)
[2018-09-02] MEDS: FUROSEMIDE 40MG/4ML VIAL IVP SCH (08:58)
[2018-09-02] MEDS: MIDODRINE HCL 5MG TABLET PO SCH ×3 (08:59→16:13)
[2018-09-02] MEDS: ENOXAPARIN 100MG/ML SYR SUBCUT SCH (12:30)
[2018-09-02] MEDS ORDERED: MAGNESIUM 2 G PREMIX 50 ML IV SCH (16:00)
[2018-09-03] VITALS (92 sets, daily range): BP systolic 81–121; BP diastolic 40–88
[2018-09-03] MEDS: BLOOD SUGAR DIAGNOSTIC STRIP TEST SCH ×4 (00:09→17:50)
[2018-09-03] MEDS: NAFCILLIN SODIUM 2,000 MG in SODIUM CHLORIDE 0.9% 100 ML IV SCH ×4 (00:20→18:02)
[2018-09-03] MEDS: ENOXAPARIN 100MG/ML SYR SUBCUT SCH ×2 (00:20→13:33)
[2018-09-03] MEDS: IPRATROPIUM BROMIDE (0.02%) 0.5MG/2.5ML NEB HHN SCH ×6 (00:27→20:44)
[2018-09-03] MEDS: DEXTROSE 50% WATER 50ML SYRINGE IV PRN ×2 (06:11→06:39)
[2018-09-03 07:51] LABS: BG BASE EXCESS 2.1 mmol/L (-2.0-2.0); BG CARBOXYHEMOGLOBIN 0.4 % (0.5-1.5); BG DEOXYHEMOGLOBIN 1.4 % (0.0-5.0); BG FRACTION INSPIRED OXYGEN 40; BG HCO3 ACT 25.9 mmol/L (22.0-26.0); BG METHEMOGLOBIN 0.2 % (0.0-1.5); BG OXYGEN SATURATION 98.6 % (92.0-98.5); BG PH 7.463 (7.350-7.450); BG PO2 131.4 mmHg (75.0-100.0); BG SAMPLE SITE RIGHT RADIAL; BG TIDAL VOLUME(mL) 500 mL; BG TOTAL HEMOGLOBIN 8.7 g/dL (12.0-18.0); BG VENT MODE VENT - A/C; BG VENT RATE 10 set
[2018-09-03] MEDS: FERROUS SULFATE 300MG/5ML UDC PO SCH ×3 (08:40→18:04)
[2018-09-03] MEDS: POTASSIUM CHLORIDE 20MEQ/PACKET PO SCH ×2 (08:40→17:08)
[2018-09-03] MEDS: PANTOPRAZOLE SODIUM 40 MG/VIAL IV SCH ×2 (08:40→21:31)
[2018-09-03] MEDS: FUROSEMIDE 40MG/4ML VIAL IVP SCH (08:40)
[2018-09-03] MEDS: LACTULOSE 20G/30ML UDC PO SCH ×2 (08:40→17:08)
[2018-09-03] MEDS: MIDODRINE HCL 5MG TABLET PO SCH ×3 (08:41→17:09)
[2018-09-03 16:15] LABS: BG BASE EXCESS 1.9 mmol/L (-2.0-2.0); BG CARBOXYHEMOGLOBIN 0.3 % (0.5-1.5); BG DEOXYHEMOGLOBIN 1.3 % (0.0-5.0); BG FRACTION INSPIRED OXYGEN 40; BG HCO3 ACT 25.3 mmol/L (22.0-26.0); BG METHEMOGLOBIN 0.4 % (0.0-1.5); BG OXYGEN SATURATION 98.7 % (92.0-98.5); BG PCO2 34.9 mmHg (35.0-45.0); BG PH 7.479 (7.350-7.450); BG PO2 125.4 mmHg (75.0-100.0); BG PRESSURE SUPPORT 12; BG SAMPLE SITE RIGHT RADIAL; BG TIDAL VOLUME(mL) 500 mL; BG TOTAL HEMOGLOBIN 9.3 g/dL (12.0-18.0); BG VENT MODE VENT - SIMV; BG VENT RATE 8 set
[2018-09-03] MEDS: PHENYLEPHRINE 40 MG in DEXT 5% WATER 246 ML IV PRN (20:44)
[2018-09-04] VITALS (93 sets, daily range): BP systolic 74–126; BP diastolic 42–82
[2018-09-04] MEDS: IPRATROPIUM BROMIDE (0.02%) 0.5MG/2.5ML NEB HHN SCH ×6 (00:31→20:44)
[2018-09-04] MEDS: ENOXAPARIN 100MG/ML SYR SUBCUT SCH ×2 (00:34→13:04)
[2018-09-04] MEDS: BLOOD SUGAR DIAGNOSTIC STRIP TEST SCH ×5 (00:35→23:39)
[2018-09-04] MEDS: NAFCILLIN SODIUM 2,000 MG in SODIUM CHLORIDE 0.9% 100 ML IV SCH ×4 (00:35→19:25)
[2018-09-04] MEDS: PHENYLEPHRINE 40 MG in DEXT 5% WATER 246 ML IV PRN (02:30)
[2018-09-04 05:35] LABS: PROTHROMBIN TIME 10.4 sec (9.1-11.1)
[2018-09-04] MEDS: LACTULOSE 20G/30ML UDC PO SCH ×2 (08:09→17:00)
[2018-09-04] MEDS: FERROUS SULFATE 300MG/5ML UDC PO SCH ×3 (08:09→17:56)
[2018-09-04] MEDS: PANTOPRAZOLE SODIUM 40 MG/VIAL IV SCH ×2 (08:09→21:13)
[2018-09-04] MEDS: POTASSIUM CHLORIDE 20MEQ/PACKET PO SCH ×2 (08:09→17:00)
[2018-09-04] MEDS: FUROSEMIDE 40MG/4ML VIAL IVP SCH (08:09)
[2018-09-04] MEDS: MIDODRINE HCL 5MG TABLET PO SCH ×3 (08:10→17:00)
[2018-09-04 08:41] LABS: BG BASE EXCESS 2.1 mmol/L (-2.0-2.0); BG CARBOXYHEMOGLOBIN 0.4 % (0.5-1.5); BG DEOXYHEMOGLOBIN 1.4 % (0.0-5.0); BG FRACTION INSPIRED OXYGEN 40; BG HCO3 ACT 25.9 mmol/L (22.0-26.0); BG METHEMOGLOBIN 0.2 % (0.0-1.5); BG OXYGEN SATURATION 98.6 % (92.0-98.5); BG PH 7.463 (7.350-7.450); BG PO2 131.4 mmHg (75.0-100.0); BG SAMPLE SITE RIGHT RADIAL; BG TIDAL VOLUME(mL) 500 mL; BG TOTAL HEMOGLOBIN 8.7 g/dL (12.0-18.0); BG VENT MODE VENT - A/C; BG VENT RATE 10 set
[2018-09-04 09:28] LABS: BG BASE EXCESS 1.7 mmol/L (-2.0-2.0); BG CARBOXYHEMOGLOBIN 0.4 % (0.5-1.5); BG DEOXYHEMOGLOBIN 1.3 % (0.0-5.0); BG FRACTION INSPIRED OXYGEN 40; BG METHEMOGLOBIN 0.3 % (0.0-1.5); BG OXYGEN SATURATION 98.7 % (92.0-98.5); BG PCO2 34.4 mmHg (35.0-45.0); BG SAMPLE SITE RIGHT RADIAL; BG TIDAL VOLUME(mL) 500 mL; BG TOTAL HEMOGLOBIN 9.1 g/dL (12.0-18.0); BG VENT MODE VENT - SIMV; BG VENT RATE 4 set
[2018-09-04 11:31] LABS: BASOPHILS % 0.4 % (0.0-2.0); EOSINOPHILS % 0.2 % (0.0-5.0); HEMATOCRIT. 31.1 % (36.0-48.0); HEMOGLOBIN. 9.9 g/dL (12.0-16.0); LYMPHOCYTES % 9.7 % (20.0-50.0); MEAN CORPUSCULAR HEMOGLOBIN 27.4 pg (28.0-32.0); MEAN CORPUSCULAR VOLUME 86.5 fL (81.0-99.0); MONOCYTES % 6.5 % (2.0-8.0); NEUTROPHILS % 83.2 % (40.0-76.0); RED CELL DISTRIBUTION WIDTH 21.6 % (11.6-14.6)
[2018-09-04 11:32] LABS: CHLORIDE 109 mEq/L (98-107)
[2018-09-04 11:38] LABS: PHOSPHORUS 1.7 mg/dL (2.5-4.9)
[2018-09-04 12:53] LABS: MEAN PLATELET VOLUME 9.2 fl (7.4-10.4); PLATELET 273 x1000/uL (130-400)
[2018-09-04 13:24] LABS: BG BASE EXCESS 1.3 mmol/L (-2.0-2.0); BG CARBOXYHEMOGLOBIN 0.1 % (0.5-1.5); BG DEOXYHEMOGLOBIN 1.7 % (0.0-5.0); BG FRACTION INSPIRED OXYGEN 40; BG HCO3 ACT 24.6 mmol/L (22.0-26.0); BG METHEMOGLOBIN 0.3 % (0.0-1.5); BG OXYGEN SATURATION 98.3 % (92.0-98.5); BG OXYHEMOGLOBIN 97.9 % (94.0-97.0); BG PCO2 33.9 mmHg (35.0-45.0); BG PH 7.479 (7.350-7.450); BG PO2 112.5 mmHg (75.0-100.0); BG PRESSURE SUPPORT 8; BG SAMPLE SITE RIGHT RADIAL; BG TOTAL HEMOGLOBIN 9.3 g/dL (12.0-18.0); BG VENT MODE VENT - CPAP
[2018-09-05] VITALS (88 sets, daily range): BP systolic 78–118; BP diastolic 17–78
[2018-09-05] MEDS: IPRATROPIUM BROMIDE (0.02%) 0.5MG/2.5ML NEB HHN SCH ×6 (00:44→20:44)
[2018-09-05] MEDS: ENOXAPARIN 100MG/ML SYR SUBCUT SCH (00:53)
[2018-09-05] MEDS: NAFCILLIN SODIUM 2,000 MG in SODIUM CHLORIDE 0.9% 100 ML IV SCH ×4 (00:53→19:58)
[2018-09-05] MEDS: DEXTROSE 50% WATER 50ML SYRINGE IV PRN (05:25)
[2018-09-05] MEDS: BLOOD SUGAR DIAGNOSTIC STRIP TEST SCH ×3 (05:25→18:00)
[2018-09-05 05:43] LABS: CHLORIDE 108 mEq/L (98-107)
[2018-09-05 05:48] LABS: EOSINOPHILS % 0.5 % (0.0-5.0); HEMATOCRIT. 29.4 % (36.0-48.0); HEMOGLOBIN. 9.4 g/dL (12.0-16.0); LYMPHOCYTES % 17.5 % (20.0-50.0); MEAN CORPUSCULAR HEMOGLOBIN 27.5 pg (28.0-32.0); MEAN CORPUSCULAR VOLUME 86.2 fL (81.0-99.0); MEAN PLATELET VOLUME 9.4 fl (7.4-10.4); MONOCYTES % 8.9 % (2.0-8.0); NEUTROPHILS % 72.1 % (40.0-76.0); PLATELET 233 x1000/uL (130-400); RED BLOOD CELL COUNT 3.41 mill/uL (4.2-5.4); RED CELL DISTRIBUTION WIDTH 21.6 % (11.6-14.6)
[2018-09-05 05:56] LABS: PHOSPHORUS 2.5 mg/dL (2.5-4.9)
[2018-09-05] MEDS: PANTOPRAZOLE SODIUM 40 MG/VIAL IV SCH ×2 (12:24→21:32)
[2018-09-05] MEDS: POTASSIUM CHLORIDE 20MEQ/PACKET PO SCH ×2 (12:25→18:11)
[2018-09-05] MEDS: LACTULOSE 20G/30ML UDC PO SCH ×2 (12:26→18:07)
[2018-09-05] MEDS: MIDODRINE HCL 5MG TABLET PO SCH ×3 (12:26→18:12)
[2018-09-05] MEDS: FUROSEMIDE 40MG/4ML VIAL IVP SCH (12:26)
[2018-09-05] MEDS: FERROUS SULFATE 300MG/5ML UDC PO SCH ×3 (12:27→18:06)
[2018-09-05] MEDS: AMIODARONE HCL 900 MG in DEXT 5% WATER 482 ML IV PRN (13:34)
[2018-09-05] MEDS: ENOXAPARIN 80MG/0.8ML SYR SUBCUT SCH (13:52)
[2018-09-05] MEDS ORDERED: POTASSIUM CHLORIDE INJ 40 MEQ in DEXT 5% WATER 250 ML IV SCH (15:00)
[2018-09-05] MEDS: ACETYLCYSTEINE 100MG/ML 10% VIAL 4ML INH SCH (16:02)
[2018-09-05] MEDS: PHENYLEPHRINE 40 MG in DEXT 5% WATER 246 ML IV PRN (18:06)
[2018-09-06] VITALS (59 sets, daily range): BP systolic 87–133; BP diastolic 49–95
[2018-09-06] MEDS: IPRATROPIUM BROMIDE (0.02%) 0.5MG/2.5ML NEB HHN SCH ×7 (00:28→23:54)
[2018-09-06] MEDS: ACETYLCYSTEINE 100MG/ML 10% VIAL 4ML INH SCH ×4 (00:29→23:54)
[2018-09-06] MEDS: NAFCILLIN SODIUM 2,000 MG in SODIUM CHLORIDE 0.9% 100 ML IV SCH ×4 (01:42→18:00)
[2018-09-06] MEDS: ENOXAPARIN 80MG/0.8ML SYR SUBCUT SCH ×2 (01:42→11:57)
[2018-09-06] MEDS: FERROUS SULFATE 300MG/5ML UDC PO SCH ×3 (08:02→17:06)
[2018-09-06] MEDS: LACTULOSE 20G/30ML UDC PO SCH ×2 (08:02→17:06)
[2018-09-06] MEDS: PANTOPRAZOLE SODIUM 40 MG/VIAL IV SCH ×2 (08:02→20:59)
[2018-09-06] MEDS: FUROSEMIDE 40MG/4ML VIAL IVP SCH (08:02)
[2018-09-06] MEDS: POTASSIUM CHLORIDE 20MEQ/PACKET PO SCH ×2 (08:03→17:06)
[2018-09-06] MEDS: MIDODRINE HCL 5MG TABLET PO SCH ×3 (08:03→17:06)
[2018-09-06] MEDS: BLOOD SUGAR DIAGNOSTIC STRIP TEST SCH ×3 (11:29→17:06)
[2018-09-06] MEDS: AMIODARONE HCL 900 MG in DEXT 5% WATER 482 ML IV PRN (12:09)
[2018-09-06] MEDS: FLUDROCORTISONE ACETATE 0.1MG TABLET PO SCH (17:06)
[2018-09-07] VITALS (48 sets, daily range): BP systolic 92–131; BP diastolic 46–105
[2018-09-07] MEDS: NAFCILLIN SODIUM 2,000 MG in SODIUM CHLORIDE 0.9% 100 ML IV SCH ×4 (00:50→21:04)
[2018-09-07] MEDS: ENOXAPARIN 80MG/0.8ML SYR SUBCUT SCH ×2 (00:51→14:19)
[2018-09-07] MEDS: BLOOD SUGAR DIAGNOSTIC STRIP TEST SCH ×4 (00:51→17:41)
[2018-09-07] MEDS: IPRATROPIUM BROMIDE (0.02%) 0.5MG/2.5ML NEB HHN SCH ×5 (04:05→20:50)
[2018-09-07 06:41] LABS: HEMATOCRIT 26.7 % (36.0-48.0); HEMOGLOBIN 8.7 g/dL (12.0-16.0); MEAN CORPUSCULAR HEMOGLOBIN 28.3 pg (28.0-32.0); MEAN CORPUSCULAR VOLUME 86.3 fL (81.0-99.0); PLATELET 374 x1000/uL (130-400); RED BLOOD CELL COUNT 3.09 mill/uL (4.2-5.4); RED CELL DISTRIBUTION WIDTH 23.8 % (11.6-14.6)
[2018-09-07 06:51] LABS: CHLORIDE 110 mEq/L (98-107)
[2018-09-07] MEDS: FERROUS SULFATE 300MG/5ML UDC PO SCH ×3 (08:20→17:40)
[2018-09-07] MEDS: ACETYLCYSTEINE 100MG/ML 10% VIAL 4ML INH SCH ×2 (08:53→15:00)
[2018-09-07] MEDS: PANTOPRAZOLE SODIUM 40 MG/VIAL IV SCH ×2 (09:00→21:04)
[2018-09-07] MEDS: FUROSEMIDE 40MG/4ML VIAL IVP SCH (09:00)
[2018-09-07] MEDS: LACTULOSE 20G/30ML UDC PO SCH ×2 (09:36→17:00)
[2018-09-07] MEDS: MIDODRINE HCL 5MG TABLET PO SCH ×3 (09:36→17:00)
[2018-09-07] MEDS: FLUDROCORTISONE ACETATE 0.1MG TABLET PO SCH (09:36)
[2018-09-07] MEDS: POTASSIUM CHLORIDE 20MEQ/PACKET PO SCH ×2 (09:37→17:00)
[2018-09-07] MEDS: AMIODARONE HCL 900 MG in DEXT 5% WATER 482 ML IV PRN (18:00)
[2018-09-08] VITALS (28 sets, daily range): BP systolic 89–134; BP diastolic 53–86
[2018-09-08] MEDS: IPRATROPIUM BROMIDE (0.02%) 0.5MG/2.5ML NEB HHN SCH ×6 (00:25→20:38)
[2018-09-08] MEDS: ACETYLCYSTEINE 100MG/ML 10% VIAL 4ML INH SCH ×3 (00:26→12:00)
[2018-09-08] MEDS: ENOXAPARIN 80MG/0.8ML SYR SUBCUT SCH ×2 (01:00→13:03)
[2018-09-08] MEDS: NAFCILLIN SODIUM 2,000 MG in SODIUM CHLORIDE 0.9% 100 ML IV SCH ×4 (01:05→19:30)
[2018-09-08] MEDS: BLOOD SUGAR DIAGNOSTIC STRIP TEST SCH ×4 (05:51→18:44)
[2018-09-08] MEDS: FUROSEMIDE 40MG/4ML VIAL IVP SCH (08:49)
[2018-09-08] MEDS: LACTULOSE 20G/30ML UDC PO SCH (08:49)
[2018-09-08] MEDS: FERROUS SULFATE 300MG/5ML UDC PO SCH ×2 (08:49→13:02)
[2018-09-08] MEDS: FLUDROCORTISONE ACETATE 0.1MG TABLET PO SCH (08:49)
[2018-09-08] MEDS: PANTOPRAZOLE SODIUM 40 MG/VIAL IV SCH ×2 (08:49→21:40)
[2018-09-08] MEDS: MIDODRINE HCL 5MG TABLET PO SCH ×3 (08:50→18:40)
[2018-09-08] MEDS: POTASSIUM CHLORIDE 20MEQ/PACKET PO SCH (08:50)
[2018-09-08] MEDS: AMIODARONE HCL 200 MG TABLET PO SCH (11:42)
[2018-09-08 12:02] LABS: HEMATOCRIT 26.8 % (36.0-48.0); HEMOGLOBIN 8.6 g/dL (12.0-16.0); MEAN CORPUSCULAR HEMOGLOBIN 28.1 pg (28.0-32.0); MEAN CORPUSCULAR VOLUME 87.7 fL (81.0-99.0); PLATELET 401 x1000/uL (130-400); RED BLOOD CELL COUNT 3.05 mill/uL (4.2-5.4); RED CELL DISTRIBUTION WIDTH 25.2 % (11.6-14.6)
[2018-09-08] MEDS: ACETAMINOPHEN 325MG TABLET PO PRN ×2 (13:51→18:40)
[2018-09-08] MEDS: DEXTROSE 50% WATER 50ML SYRINGE IV PRN (18:47)
[2018-09-08 20:50] LABS: HEMATOCRIT 28.5 % (36.0-48.0)
[2018-09-09] VITALS (10 sets, daily range): BP systolic 89–112; BP diastolic 49–68
[2018-09-09] MEDS: ACETYLCYSTEINE 100MG/ML 10% VIAL 4ML INH SCH ×3 (00:38→16:08)
[2018-09-09] MEDS: IPRATROPIUM BROMIDE (0.02%) 0.5MG/2.5ML NEB HHN SCH ×7 (00:40→23:52)
[2018-09-09] MEDS: BLOOD SUGAR DIAGNOSTIC STRIP TEST SCH ×4 (00:50→17:59)
[2018-09-09] MEDS: ENOXAPARIN 80MG/0.8ML SYR SUBCUT SCH ×2 (01:34→12:41)
[2018-09-09] MEDS: NAFCILLIN SODIUM 2,000 MG in SODIUM CHLORIDE 0.9% 100 ML IV SCH ×4 (01:34→20:36)
[2018-09-09] MEDS: DEXTROSE 50% WATER 50ML SYRINGE IV PRN ×3 (06:31→12:37)
[2018-09-09] MEDS: PANTOPRAZOLE SODIUM 40 MG/VIAL IV SCH ×2 (08:23→20:36)
[2018-09-09] MEDS: FERROUS SULFATE 300MG/5ML UDC PO SCH ×3 (08:23→18:03)
[2018-09-09] MEDS: AMIODARONE HCL 200 MG TABLET PO SCH (08:23)
[2018-09-09] MEDS: FUROSEMIDE 40MG/4ML VIAL IVP SCH (08:23)
[2018-09-09] MEDS: MIDODRINE HCL 5MG TABLET PO SCH ×3 (08:23→16:46)
[2018-09-09] MEDS: FLUDROCORTISONE ACETATE 0.1MG TABLET PO SCH (08:23)
[2018-09-09] MEDS: LACTULOSE 20G/30ML UDC PO SCH ×2 (08:35→18:03)
[2018-09-09 09:51] LABS: BG BASE EXCESS -2.2 mmol/L (-2.0-2.0); BG CARBOXYHEMOGLOBIN 0.3 % (0.5-1.5); BG DEOXYHEMOGLOBIN 2.6 % (0.0-5.0); BG FRACTION INSPIRED OXYGEN 32; BG HCO3 ACT 21.2 mmol/L (22.0-26.0); BG METHEMOGLOBIN 0.5 % (0.0-1.5); BG OXYGEN SATURATION 97.4 % (92.0-98.5); BG OXYHEMOGLOBIN 96.6 % (94.0-97.0); BG PCO2 30.8 mmHg (35.0-45.0); BG PH 7.455 (7.350-7.450); BG SAMPLE SITE RIGHT BRACHIAL; BG TOTAL HEMOGLOBIN 9.3 g/dL (12.0-18.0); BG VENT MODE NASAL CANNULA
[2018-09-09] MEDS ORDERED: DEXT 10% WATER 1,000 ML IV SCH (10:00)
[2018-09-09] MEDS ORDERED: FUROSEMIDE 40MG/4ML VIAL IVP NR (10:00)
[2018-09-09] MEDS: DEXT 10% WATER 1,000 ML IV SCH (11:48)
[2018-09-09] MEDS: ACETAMINOPHEN 325MG TABLET PO PRN (16:46)
[2018-09-09] MEDS: FUROSEMIDE 100MG/10ML VIAL IVP SCH (21:59)
[2018-09-10] VITALS (12 sets, daily range): BP systolic 95–130; BP diastolic 52–82
[2018-09-10] MEDS: ENOXAPARIN 80MG/0.8ML SYR SUBCUT SCH ×3 (01:27→23:50)
[2018-09-10] MEDS: NAFCILLIN SODIUM 2,000 MG in SODIUM CHLORIDE 0.9% 100 ML IV SCH ×4 (01:27→19:16)
[2018-09-10 02:09] LABS: BG BASE EXCESS -1.6 mmol/L (-2.0-2.0); BG CARBOXYHEMOGLOBIN 0.3 % (0.5-1.5); BG DEOXYHEMOGLOBIN 0.2 % (0.0-5.0); BG FRACTION INSPIRED OXYGEN 100; BG HCO3 ACT 21.4 mmol/L (22.0-26.0); BG METHEMOGLOBIN 0.3 % (0.0-1.5); BG OXYGEN SATURATION 99.8 % (92.0-98.5); BG OXYHEMOGLOBIN 99.2 % (94.0-97.0); BG PCO2 29.7 mmHg (35.0-45.0); BG PH 7.476 (7.350-7.450); BG PO2 412.6 mmHg (75.0-100.0); BG SAMPLE SITE LEFT RADIAL; BG TOTAL HEMOGLOBIN 9.2 g/dL (12.0-18.0); BG VENT MODE MASK - NRB
[2018-09-10] MEDS: IPRATROPIUM BROMIDE (0.02%) 0.5MG/2.5ML NEB HHN SCH ×5 (04:41→20:11)
[2018-09-10] MEDS: FUROSEMIDE 100MG/10ML VIAL IVP SCH ×2 (05:34→18:00)
[2018-09-10] MEDS: BLOOD SUGAR DIAGNOSTIC STRIP TEST SCH ×5 (05:45→23:42)
[2018-09-10] MEDS: AMIODARONE HCL 200 MG TABLET PO SCH (09:50)
[2018-09-10] MEDS: FLUDROCORTISONE ACETATE 0.1MG TABLET PO SCH (09:50)
[2018-09-10] MEDS: MIDODRINE HCL 5MG TABLET PO SCH ×3 (09:50→19:16)
[2018-09-10] MEDS: PANTOPRAZOLE SODIUM 40 MG/VIAL IV SCH ×2 (09:50→21:54)
[2018-09-10] MEDS: ONDANSETRON HCL 4MG/2ML INJ IV PRN ×2 (09:50→22:03)
[2018-09-10] MEDS: ACETAMINOPHEN 325MG TABLET PO PRN (09:50)
[2018-09-10] MEDS: LACTULOSE 20G/30ML UDC PO SCH ×2 (09:50→17:00)
[2018-09-10] MEDS: DEXT 10% WATER 1,000 ML IV SCH ×2 (09:59→21:54)
[2018-09-10] MEDS: FERROUS SULFATE 300MG/5ML UDC PO SCH ×3 (10:11→18:00)
[2018-09-10] MEDS: ACETYLCYSTEINE 100MG/ML 10% VIAL 4ML INH SCH (20:11)
[2018-09-11] VITALS (12 sets, daily range): BP systolic 94–127; BP diastolic 53–70
[2018-09-11] MEDS: IPRATROPIUM BROMIDE (0.02%) 0.5MG/2.5ML NEB HHN SCH ×6 (00:11→20:39)
[2018-09-11] MEDS: NAFCILLIN SODIUM 2,000 MG in SODIUM CHLORIDE 0.9% 100 ML IV SCH ×4 (01:52→18:49)
[2018-09-11] MEDS: BLOOD SUGAR DIAGNOSTIC STRIP TEST SCH ×3 (05:11→18:58)
[2018-09-11] MEDS: FUROSEMIDE 100MG/10ML VIAL IVP SCH ×2 (05:11→18:56)
[2018-09-11] MEDS: LACTULOSE 20G/30ML UDC PO SCH ×2 (09:09→18:58)
[2018-09-11] MEDS: ACETAMINOPHEN 325MG TABLET PO PRN (09:10)
[2018-09-11] MEDS: FERROUS SULFATE 300MG/5ML UDC PO SCH ×3 (09:10→18:58)
[2018-09-11] MEDS: FLUDROCORTISONE ACETATE 0.1MG TABLET PO SCH (09:10)
[2018-09-11] MEDS: MIDODRINE HCL 5MG TABLET PO SCH ×3 (09:10→18:57)
[2018-09-11] MEDS: PANTOPRAZOLE SODIUM 40 MG/VIAL IV SCH ×2 (09:10→22:10)
[2018-09-11] MEDS: ACETYLCYSTEINE 100MG/ML 10% VIAL 4ML INH SCH (09:14)
[2018-09-11] MEDS: AMIODARONE HCL 200 MG TABLET PO SCH (09:21)
[2018-09-11] MEDS: ENOXAPARIN 80MG/0.8ML SYR SUBCUT SCH (13:56)
[2018-09-12] VITALS (13 sets, daily range): BP systolic 84–110; BP diastolic 47–78
[2018-09-12] MEDS: ENOXAPARIN 80MG/0.8ML SYR SUBCUT SCH ×2 (00:58→13:26)
[2018-09-12] MEDS: NAFCILLIN SODIUM 2,000 MG in SODIUM CHLORIDE 0.9% 100 ML IV SCH ×4 (00:58→18:45)
[2018-09-12] MEDS: BLOOD SUGAR DIAGNOSTIC STRIP TEST SCH ×4 (01:02→18:00)
[2018-09-12] MEDS: IPRATROPIUM BROMIDE (0.02%) 0.5MG/2.5ML NEB HHN SCH ×3 (01:04→21:59)
[2018-09-12] MEDS ORDERED: IPRATROPIUM BROMIDE (0.02%) 0.5MG/2.5ML NEB ONE (03:54)
[2018-09-12] MEDS: FUROSEMIDE 100MG/10ML VIAL IVP SCH ×2 (06:25→18:57)
[2018-09-12] MEDS: LACTULOSE 20G/30ML UDC PO SCH ×3 (09:00→18:44)
[2018-09-12] MEDS: AMIODARONE HCL 200 MG TABLET PO SCH (09:15)
[2018-09-12] MEDS: FLUDROCORTISONE ACETATE 0.1MG TABLET PO SCH (09:15)
[2018-09-12] MEDS: FERROUS SULFATE 300MG/5ML UDC PO SCH ×3 (09:15→18:45)
[2018-09-12] MEDS: PANTOPRAZOLE SODIUM 40 MG/VIAL IV SCH (09:15)
[2018-09-12] MEDS: MIDODRINE HCL 5MG TABLET PO SCH ×3 (09:15→18:46)
[2018-09-12] MEDS: ACETAMINOPHEN 325MG TABLET PO PRN ×3 (09:17→18:58)
[2018-09-12] MEDS: DEXT 10% WATER 1,000 ML IV SCH (12:10)
[2018-09-13] VITALS: BP 101/56
[2018-09-13] MEDS: ENOXAPARIN 80MG/0.8ML SYR SUBCUT SCH ×2 (00:15→14:16)
[2018-09-13] MEDS: NAFCILLIN SODIUM 2,000 MG in SODIUM CHLORIDE 0.9% 100 ML IV SCH ×4 (00:15→18:34)
[2018-09-13] MEDS: ACETAMINOPHEN 325MG TABLET PO PRN ×3 (00:16→11:43)
[2018-09-13] MEDS: BLOOD SUGAR DIAGNOSTIC STRIP TEST SCH ×4 (00:51→18:35)
[2018-09-13] MEDS: IPRATROPIUM BROMIDE (0.02%) 0.5MG/2.5ML NEB HHN SCH ×6 (01:56→20:12)
[2018-09-13 04:00] VITALS: BP 106/55
[2018-09-13 08:23] VITALS: BP 104/71
[2018-09-13] MEDS: AMIODARONE HCL 200 MG TABLET PO SCH ×2 (09:00→11:44)
[2018-09-13] MEDS: FLUDROCORTISONE ACETATE 0.1MG TABLET PO SCH ×2 (09:00→14:17)
[2018-09-13] MEDS ORDERED: BARIUM SULFATE 176 GM SUSP.RECON ONE (09:06)
[2018-09-13] MEDS: DEXT 10% WATER 1,000 ML IV SCH (11:47)
[2018-09-13 13:02] VITALS: BP 110/59
[2018-09-13] MEDS: MORPHINE SULFATE 4 MG/ML CPJ (NOT FOR IM USE) IV PRN (15:49)
[2018-09-13 15:55] LABS: CHLORIDE 101 mEq/L (98-107)
[2018-09-13 16:33] VITALS: BP 107/46
[2018-09-13] MEDS ORDERED: POTASSIUM CHLORIDE INJ 40 MEQ in DEXT 5% WATER 250 ML IV NR (18:00)
[2018-09-13] MEDS: MAGNESIUM OXIDE 400MG TABLET PO SCH (18:37)
[2018-09-13 20:00] VITALS: BP 101/42
[2018-09-13] MEDS ORDERED: MAGNESIUM 2 G PREMIX 50 ML IV NR (20:00)
[2018-09-13] MEDS: POTASSIUM CHLORIDE 20MEQ TABLET SR PO SCH ×2 (21:10→21:11)
[2018-09-14] VITALS (12 sets, daily range): BP systolic 98–115; BP diastolic 53–80
[2018-09-14] MEDS: MORPHINE SULFATE 4 MG/ML CPJ (NOT FOR IM USE) IV PRN ×3 (00:06→15:32)
[2018-09-14] MEDS: IPRATROPIUM BROMIDE (0.02%) 0.5MG/2.5ML NEB HHN SCH ×6 (00:27→22:00)
[2018-09-14] MEDS: NAFCILLIN SODIUM 2,000 MG in SODIUM CHLORIDE 0.9% 100 ML IV SCH ×4 (02:13→18:54)
[2018-09-14] MEDS: ENOXAPARIN 80MG/0.8ML SYR SUBCUT SCH ×2 (02:14→12:59)
[2018-09-14] MEDS: BLOOD SUGAR DIAGNOSTIC STRIP TEST SCH ×4 (06:36→18:00)
[2018-09-14 08:19] LABS: BASOPHILS % 0.2 % (0.0-2.0); EOSINOPHILS % 0.4 % (0.0-5.0); LYMPHOCYTES % 27.9 % (20.0-50.0); MEAN CORPUSCULAR VOLUME 88.8 fL (81.0-99.0); MEAN PLATELET VOLUME 7.2 fl (7.4-10.4); MONOCYTES % 9.4 % (2.0-8.0); NEUTROPHILS % 62.1 % (40.0-76.0); PLATELET 297 x1000/uL (130-400); RED BLOOD CELL COUNT 2.23 mill/uL (4.2-5.4); RED CELL DISTRIBUTION WIDTH 28.7 % (11.6-14.6)
[2018-09-14 08:25] LABS: HEMOGLOBIN. 6.5 g/dL (12.0-16.0)
[2018-09-14 08:26] LABS: HEMATOCRIT. 19.8 % (36.0-48.0)
[2018-09-14 08:33] LABS: CHLORIDE 103 mEq/L (98-107)
[2018-09-14] MEDS: MAGNESIUM OXIDE 400MG TABLET PO SCH ×2 (09:00→17:00)
[2018-09-14] MEDS: AMIODARONE HCL 200 MG TABLET PO SCH (09:00)
[2018-09-14] MEDS: FLUDROCORTISONE ACETATE 0.1MG TABLET PO SCH (09:00)
[2018-09-14] MEDS: POTASSIUM CHLORIDE 20MEQ TABLET SR PO SCH ×4 (09:00→21:51)
[2018-09-14 10:29] LABS: PLATELET ESTIMATE NORMAL
[2018-09-14] MEDS ORDERED: LIDOCAINE HCL/EPINEPHRINE 1%-EPI 1:100,000 20 ML VIAL INFIL NR (14:00)
[2018-09-14] MEDS ORDERED: FUROSEMIDE 20MG/2ML VIAL IVP NR (16:45)
[2018-09-14] MEDS: ONDANSETRON HCL 4MG/2ML INJ IV PRN (17:05)
[2018-09-14] MEDS ORDERED: POTASSIUM CHLORIDE INJ 40 MEQ in DEXT 5% WATER 250 ML IV NR (18:00)
[2018-09-14 18:13] LABS: TOTAL IRON BINDING CAPACITY 259 ug/dL (250-450)
[2018-09-14] MEDS: HYDROCODONE/ACETAMINOPHEN 5/325MG TABLET PO PRN (21:52)
[2018-09-15] VITALS (8 sets, daily range): BP systolic 93–111; BP diastolic 43–76
[2018-09-15] MEDS: ENOXAPARIN 80MG/0.8ML SYR SUBCUT SCH ×2 (01:37→14:21)
[2018-09-15] MEDS: NAFCILLIN SODIUM 2,000 MG in SODIUM CHLORIDE 0.9% 100 ML IV SCH ×4 (01:38→18:44)
[2018-09-15] MEDS: IPRATROPIUM BROMIDE (0.02%) 0.5MG/2.5ML NEB HHN SCH ×4 (04:10→15:11)
[2018-09-15] MEDS: BLOOD SUGAR DIAGNOSTIC STRIP TEST SCH ×4 (06:25→18:43)
[2018-09-15] MEDS: POTASSIUM CHLORIDE 20MEQ TABLET SR PO SCH ×4 (09:00→20:28)
[2018-09-15] MEDS: MAGNESIUM OXIDE 400MG TABLET PO SCH ×2 (09:18→18:43)
[2018-09-15] MEDS: HYDROCODONE/ACETAMINOPHEN 5/325MG TABLET PO PRN (09:18)
[2018-09-15] MEDS: AMIODARONE HCL 200 MG TABLET PO SCH (09:18)
[2018-09-15] MEDS: FLUDROCORTISONE ACETATE 0.1MG TABLET PO SCH (09:18)
[2018-09-15 10:37] LABS: BASOPHILS % 0.5 % (0.0-2.0); EOSINOPHILS % 0.1 % (0.0-5.0); HEMOGLOBIN. 7.9 g/dL (12.0-16.0); LYMPHOCYTES % 18.1 % (20.0-50.0); MEAN CORPUSCULAR HEMOGLOBIN 29.1 pg (28.0-32.0); MEAN CORPUSCULAR VOLUME 88.6 fL (81.0-99.0); MEAN PLATELET VOLUME 7.4 fl (7.4-10.4); MONOCYTES % 10.5 % (2.0-8.0); NEUTROPHILS % 70.8 % (40.0-76.0); PLATELET 255 x1000/uL (130-400); RED BLOOD CELL COUNT 2.71 mill/uL (4.2-5.4); RED CELL DISTRIBUTION WIDTH 24.8 % (11.6-14.6)
[2018-09-15 11:35] LABS: PHOSPHORUS 2.8 mg/dL (2.5-4.9)
[2018-09-15] MEDS: ACETAMINOPHEN 325MG TABLET PO PRN (14:21)
== END 2018-09-15 20:55 | DRG 870 ==
LOC: ER 19:07 → 8WST 23:39 → EDBEDREQ 23:41 → ENRESERV 08-25 02:06 → 5EST 08-25 18:02 → CVICU 08-25 21:10 → 5EST 09-08 17:00 → 8WST 09-12 23:15
PROVIDERS: ADMIT Internal Medicine Nephrology; ATTEND Internal Medicine Nephrology
PROC: 5A1955Z Respiratory Ventilation, Greater than 96 Consecutive Hours (ICD-10-PCS; principal; 2018-08-26)
PROC: 0BH18EZ Insertion of Endotracheal Airway into Trachea, Via Natural or Artificial Opening Endoscopic (ICD-10-PCS; 2018-08-26)
PROC: B5181ZA Fluoroscopy of Superior Vena Cava using Low Osmolar Contrast, Guidance (ICD-10-PCS; 2018-08-26)
PROC: 02HV33Z Insertion of Infusion Device into Superior Vena Cava, Percutaneous Approach (ICD-10-PCS; 2018-08-26)
PROC: B548ZZA Ultrasonography of Superior Vena Cava, Guidance (ICD-10-PCS; 2018-08-26)
PROC: B548ZZA Ultrasonography of Superior Vena Cava, Guidance (ICD-10-PCS; 2018-08-26)
PROC: 02HV33Z Insertion of Infusion Device into Superior Vena Cava, Percutaneous Approach (ICD-10-PCS; 2018-08-26)
PROC: 0BH17EZ Insertion of Endotracheal Airway into Trachea, Via Natural or Artificial Opening (ICD-10-PCS; 2018-08-26)
PROC: 5A1935Z Respiratory Ventilation, Less than 24 Consecutive Hours (ICD-10-PCS; 2018-08-26)
PROC: 4A00X4Z Measurement of Central Nervous Electrical Activity, External Approach (ICD-10-PCS; 2018-08-28)
PROC: 5A1D70Z Performance of Urinary Filtration, Intermittent, Less than 6 Hours Per Day (ICD-10-PCS; 2018-08-31)
PROC: 30233N1 Transfusion of Nonautologous Red Blood Cells into Peripheral Vein, Percutaneous Approach (ICD-10-PCS; 2018-09-14)
DX: A41.01 Sepsis due to Methicillin susceptible Staphylococcus aureus (principal); L89.153 Pressure ulcer of sacral region, stage 3; L89.323 Pressure ulcer of left buttock, stage 3; J96.00 Acute respiratory failure, unspecified whether with hypoxia or hypercapnia; N17.0 Acute kidney failure with tubular necrosis; G93.41 Metabolic encephalopathy; J69.0 Pneumonitis due to inhalation of food and vomit; R65.21 Severe sepsis with septic shock; E43 Unspecified severe protein-calorie malnutrition; I63.9 Cerebral infarction, unspecified; I50.43 Acute on chronic combined systolic (congestive) and diastolic (congestive) heart failure; E87.1 Hypo-osmolality and hyponatremia; K92.2 Gastrointestinal hemorrhage, unspecified; I13.0 Hypertensive heart and chronic kidney disease with heart failure and stage 1 through stage 4 chronic kidney disease, or unspecified chronic kidney disease; I42.9 Cardiomyopathy, unspecified; I47.2 Ventricular tachycardia; L97.929 Non-pressure chronic ulcer of unspecified part of left lower leg with unspecified severity; E87.5 Hyperkalemia; K80.20 Calculus of gallbladder without cholecystitis without obstruction; B19.20 Unspecified viral hepatitis C without hepatic coma; D25.9 Leiomyoma of uterus, unspecified; D50.9 Iron deficiency anemia, unspecified; D63.8 Anemia in other chronic diseases classified elsewhere; D69.6 Thrombocytopenia, unspecified; E03.9 Hypothyroidism, unspecified; E66.01 Morbid (severe) obesity due to excess calories; E83.42 Hypomagnesemia; E87.6 Hypokalemia; F20.9 Schizophrenia, unspecified; G62.9 Polyneuropathy, unspecified; I08.1 Rheumatic disorders of both mitral and tricuspid valves; I48.91 Unspecified atrial fibrillation; I83.009 Varicose veins of unspecified lower extremity with ulcer of unspecified site; I89.0 Lymphedema, not elsewhere classified; J44.9 Chronic obstructive pulmonary disease, unspecified; L28.0 Lichen simplex chronicus; N18.9 Chronic kidney disease, unspecified; R13.10 Dysphagia, unspecified; F10.10 Alcohol abuse, uncomplicated; F11.10 Opioid abuse, uncomplicated; I95.9 Hypotension, unspecified; F99 Mental disorder, not otherwise specified; F12.10 Cannabis abuse, uncomplicated; L97.519 Non-pressure chronic ulcer of other part of right foot with unspecified severity; R26.9 Unspecified abnormalities of gait and mobility; K70.31 Alcoholic cirrhosis of liver with ascites; Z68.30 Body mass index [BMI] 30.0-30.9, adult; Z87.891 Personal history of nicotine dependence; Z99.2 Dependence on renal dialysis; Z79.1 Long term (current) use of non-steroidal anti-inflammatories (NSAID); Z79.899 Other long term (current) drug therapy; Z79.51 Long term (current) use of inhaled steroids; Z78.1 Physical restraint status
CPT/HCPCS: 36415; 36556; 36569; 36600; 70551; 71045; 71250; 74018; 74176; 74230; 76700; 76770; 76937; 77001; 78580; 80048; 80061; 80076; 80202; 80305; 80307; 80329; 82105; 82140; 82270; 82375; 82550; 82553; 82607; 82728; 82746; 82805; 82962; 83036; 83540; 83550; 83605; 83735; 83880; 84100; 84132; 84134; 84439; 84443; 84478; 84484; 85014; 85018; 85027; 85044; 85379; 86705; 86709; 86803; 86850; 86900; 86920; 87070; 87077; 87340; 87389; 92611; 93005; 93306; 93880; 93970; 94003; 94640; 96374; 96375; 97163; 99285; A6261; C1725; C1752; C9113; G0482; J0282; J0696; J1650; J1815; J1940; J2060; J2270; J2310; J2370; J2405; J2704; J3370; J3475; J3480; J3490; J7030; J7040; J7050; J7060; J7608; J7620; P9016

== ENCOUNTER 2018-12-18 18:25 | Inpatient (IN) | payer MEDICARE, MEDICAID ==
[~2018-12-18] VITALS: Ht 170.2 cm; Wt 54.9 kg
[2018-12-18 19:42] LABS: BASOPHILS % 0.7 % (0.0-2.0); EOSINOPHILS % 0.5 % (0.0-5.0); HEMATOCRIT. 41.9 % (36.0-48.0); HEMOGLOBIN. 13.9 g/dL (12.0-16.0); LYMPHOCYTES % 48.6 % (20.0-50.0); MEAN CORPUSCULAR HEMOGLOBIN 30.2 pg (28.0-32.0); MEAN CORPUSCULAR VOLUME 90.6 fL (81.0-99.0); MEAN PLATELET VOLUME 8.4 fl (7.4-10.4); MONOCYTES % 11.4 % (2.0-8.0); NEUTROPHILS % 38.8 % (40.0-76.0); PLATELET 190 x1000/uL (130-400); RED BLOOD CELL COUNT 4.62 mill/uL (4.2-5.4); RED CELL DISTRIBUTION WIDTH 16.9 % (11.6-14.6)
[2018-12-18 19:48] LABS: CHLORIDE 89 mEq/L (98-107)
[2018-12-18 19:50] LABS: INR 1.1; PARTIAL THROMBOPLASTIN TIME 29.6 sec (23.4-31.0); PROTHROMBIN TIME 11.4 sec (9.6-11.0)
[2018-12-18 19:56] LABS: PHOSPHORUS 4.7 mg/dL (2.5-4.9)
[2018-12-18] MEDS ORDERED: SODIUM CHLORIDE 0.9% 500 ML IV ONE (20:05)
[2018-12-18 20:13] LABS: DIGOXIN 0.1 ng/mL (0.9-2.0)
[2018-12-18] MEDS ORDERED: SODIUM CHLORIDE 0.9% 1,000 ML IV SCH (20:48)
[2018-12-18] MEDS ORDERED: DOCUSATE SODIUM 100MG CAPSULE PO PRN (21:00)
[2018-12-18] MEDS ORDERED: CLONIDINE 0.1MG TABLET PO PRN (21:00)
[2018-12-18] MEDS ORDERED: HYDROCODONE/APAP 7.5/325MG 1 TAB TABLET PO PRN (21:00)
[2018-12-18] MEDS ORDERED: ACETAMINOPHEN 325MG TABLET PO PRN (21:00)
[2018-12-18] MEDS ORDERED: ONDANSETRON HCL 4MG/2ML INJ IV PRN (21:00)
[2018-12-18] MEDS ORDERED: IPRATROPIUM/ALBUTEROL 0.5-3(2.5)MG/3ML NEB INH PRN (21:00)
[2018-12-18] MEDS ORDERED: MAGNESIUM/ALUMINUM HYDROXIDE/SIMETHICONE 30ML UDC PO PRN (21:00)
[2018-12-18] MEDS ORDERED: GUAIFENESIN 200MG/10ML SUGAR FREE UDC PO PRN (21:00)
[2018-12-18] MEDS ORDERED: DIPHENHYDRAMINE 50MG/ML VIAL IV PRN (21:00)
[2018-12-18] MEDS ORDERED: FUROSEMIDE 20MG/2ML VIAL IVP ONE (21:00)
[2018-12-18] MEDS ORDERED: KCL 20MEQ/100ML PREMIX 100 ML IV ONE (22:00)
[2018-12-18] MEDS: HYDROCODONE/ACETAMINOPHEN 5/325MG TABLET PO PRN (23:20)
[2018-12-19 04:30] VITALS: BP 90/65
[2018-12-19 05:31] VITALS: BP 90/65
[2018-12-19 07:06] LABS: CHLORIDE 92 mEq/L (98-107)
[2018-12-19 07:10] LABS: BASOPHILS % 0.4 % (0.0-2.0); EOSINOPHILS % 0.5 % (0.0-5.0); HEMATOCRIT. 40.8 % (36.0-48.0); HEMOGLOBIN. 13.8 g/dL (12.0-16.0); LYMPHOCYTES % 52.2 % (20.0-50.0); MEAN CORPUSCULAR HEMOGLOBIN 30.6 pg (28.0-32.0); MEAN CORPUSCULAR VOLUME 90.3 fL (81.0-99.0); MONOCYTES % 9.6 % (2.0-8.0); NEUTROPHILS % 37.3 % (40.0-76.0); PLATELET 196 x1000/uL (130-400); RED BLOOD CELL COUNT 4.52 mill/uL (4.2-5.4); RED CELL DISTRIBUTION WIDTH 16.7 % (11.6-14.6)
[2018-12-19 07:16] LABS: PHOSPHORUS 4.5 mg/dL (2.5-4.9)
[2018-12-19 07:18] LABS: CREATINE KINASE 42 IU/L (26-192); HDL CHOLESTEROL 89 mg/dL (40-59); LDL CHOLESTEROL 51 mg/dL (5-100)
[2018-12-19 08:00] VITALS: BP 103/68
[2018-12-19] MEDS ORDERED: METO5TAB69 PO (08:06)
[2018-12-19] MEDS ORDERED: THIA100T13 PO (08:06)
[2018-12-19] MEDS ORDERED: DOCU-138 PO (08:06)
[2018-12-19] MEDS ORDERED: FURO80TA3 PO (08:06)
[2018-12-19] MEDS ORDERED: NA P230E RC (08:06)
[2018-12-19] MEDS ORDERED: HYDR-4009 PO (08:06)
[2018-12-19] MEDS ORDERED: ZINC220T PO (08:06)
[2018-12-19] MEDS ORDERED: BISA10SU62 RC (08:06)
[2018-12-19] MEDS ORDERED: MVI WITH MINERALS PO (08:06)
[2018-12-19] MEDS ORDERED: IPRA3AMP31 IH (08:06)
[2018-12-19] MEDS ORDERED: CHOL100036 PO (08:06)
[2018-12-19] MEDS ORDERED: MIDO5TAB PO (08:06)
[2018-12-19] MEDS ORDERED: ASCO-339 PO (08:06)
[2018-12-19] MEDS ORDERED: DILT60TA35 PO (08:06)
[2018-12-19] MEDS ORDERED: GABA100C PO (08:06)
[2018-12-19] MEDS ORDERED: SPIR25TA6 PO (08:06)
[2018-12-19] MEDS: APIXABAN 5 MG TABLET PO SCH ×3 (08:47→18:06)
[2018-12-19] MEDS: PANTOPRAZOLE SODIUM 40 MG/VIAL IV SCH (08:47)
[2018-12-19] MEDS: HYDROCODONE/ACETAMINOPHEN 5/325MG TABLET PO PRN (08:48)
[2018-12-19] MEDS ORDERED: ENOXAPARIN 30MG/0.3ML SYR SUBCUT SCH (09:00)
[2018-12-19] MEDS ORDERED: POTASSIUM CHLORIDE INJ 40 MEQ in DEXT 5% WATER 250 ML IV NR (12:00)
[2018-12-19 12:43] VITALS: BP 95/65
[2018-12-19] MEDS: LEVOTHYROXINE SODIUM 50MCG TABLET PO SCH (14:27)
[2018-12-19 16:00] VITALS: BP 101/73
[2018-12-19] MEDS ORDERED: POTASSIUM CHLORIDE 20MEQ TABLET SR PO NR (16:15)
[2018-12-19 17:48] LABS: T4 FREE 0.88 ng/dL (0.76-1.46)
[2018-12-19 20:30] VITALS: BP 107/80
[2018-12-19 20:40] LABS: COLOR URINE YELLOW (YELLOW); KETONES URINE NEGATIVE (NEGATIVE); LEUKOCYTE ESTERASE URINE 3+ (NEGATIVE); NITRITE URINE NEGATIVE (NEGATIVE); OCCULT BLOOD URINE 2+ (NEGATIVE); PH URINE 7.5 (4.5-8.0); PROTEIN URINE 1+ (NEGATIVE); SPECIFIC GRAVITY URINE 1.013 (1.005-1.030)
[2018-12-19 20:42] LABS: CLARITY URINE HAZY (CLEAR)
[2018-12-19] MEDS: SODIUM CHLORIDE 0.9% 1,000 ML IV SCH (21:42)
[2018-12-20] VITALS (7 sets, daily range): BP systolic 94–123; BP diastolic 52–74
[2018-12-20] MEDS: HYDROMORPHONE HCL/PF 2MG/ML CPJ IV PRN ×2 (00:25→23:49)
[2018-12-20 06:25] LABS: BASOPHILS % 0.4 % (0.0-2.0); EOSINOPHILS % 1.1 % (0.0-5.0); HEMATOCRIT. 42.7 % (36.0-48.0); HEMOGLOBIN. 14.3 g/dL (12.0-16.0); LYMPHOCYTES % 52.5 % (20.0-50.0); MEAN CORPUSCULAR HEMOGLOBIN 30.5 pg (28.0-32.0); MEAN CORPUSCULAR VOLUME 91.1 fL (81.0-99.0); MEAN PLATELET VOLUME 8.6 fl (7.4-10.4); MONOCYTES % 9.8 % (2.0-8.0); NEUTROPHILS % 36.2 % (40.0-76.0); PLATELET 167 x1000/uL (130-400); RED BLOOD CELL COUNT 4.68 mill/uL (4.2-5.4); RED CELL DISTRIBUTION WIDTH 16.5 % (11.6-14.6)
[2018-12-20] MEDS: LEVOTHYROXINE SODIUM 50MCG TABLET PO SCH (06:26)
[2018-12-20 07:45] LABS: CHLORIDE 99 mEq/L (98-107)
[2018-12-20] MEDS: PANTOPRAZOLE SODIUM 40 MG/VIAL IV SCH (09:48)
[2018-12-20] MEDS: APIXABAN 5 MG TABLET PO SCH ×2 (09:48→17:32)
[2018-12-20] MEDS: LEVOFLOXACIN 250MG TABLET PO SCH (11:24)
[2018-12-20] MEDS: SODIUM CHLORIDE 0.9% 1,000 ML IV SCH (13:27)
[2018-12-20] MEDS: POTASSIUM CHLORIDE 20MEQ TABLET SR PO SCH (15:08)
[2018-12-20 16:17] LABS: TOTAL IRON BINDING CAPACITY 410 ug/dL (250-450)
[2018-12-20] MEDS: DIGOXIN 125MCG TABLET PO SCH (17:32)
[2018-12-20] MEDS: CARVEDILOL 3.125 MG TABLET PO SCH (20:17)
[2018-12-21 04:22] VITALS: BP 105/77
[2018-12-21] MEDS: HYDROMORPHONE HCL/PF 2MG/ML CPJ IV PRN (04:33)
[2018-12-21] MEDS: SODIUM CHLORIDE 0.9% 1,000 ML IV SCH ×2 (05:37→21:07)
[2018-12-21] MEDS: LEVOTHYROXINE SODIUM 50MCG TABLET PO SCH (06:26)
[2018-12-21 07:45] LABS: BASOPHILS % 0.9 % (0.0-2.0); EOSINOPHILS % 0.9 % (0.0-5.0); HEMATOCRIT. 40.5 % (36.0-48.0); HEMOGLOBIN. 13.4 g/dL (12.0-16.0); LYMPHOCYTES % 40.4 % (20.0-50.0); MEAN CORPUSCULAR HEMOGLOBIN 30.1 pg (28.0-32.0); MEAN CORPUSCULAR VOLUME 90.8 fL (81.0-99.0); MEAN PLATELET VOLUME 8.4 fl (7.4-10.4); MONOCYTES % 11.8 % (2.0-8.0); PLATELET 181 x1000/uL (130-400); RED BLOOD CELL COUNT 4.46 mill/uL (4.2-5.4); RED CELL DISTRIBUTION WIDTH 16.6 % (11.6-14.6)
[2018-12-21 07:56] LABS: CHLORIDE 103 mEq/L (98-107)
[2018-12-21 08:00] VITALS: BP 103/67
[2018-12-21] MEDS: APIXABAN 5 MG TABLET PO SCH ×2 (09:00→17:46)
[2018-12-21] MEDS: PANTOPRAZOLE SODIUM 40 MG/VIAL IV SCH (09:00)
[2018-12-21] MEDS: POTASSIUM CHLORIDE 20MEQ TABLET SR PO SCH ×2 (09:00→17:46)
[2018-12-21] MEDS: CARVEDILOL 3.125 MG TABLET PO SCH ×2 (09:12→21:00)
[2018-12-21] MEDS: LEVOFLOXACIN 250MG TABLET PO SCH (11:36)
[2018-12-21 12:00] VITALS: BP 91/67
[2018-12-21] MEDS ORDERED: BISACODYL 10MG SUPP PR NR (12:30)
[2018-12-21 13:16] LABS: THYROID PEROXIDASE ANTIBODY 106 IU/mL (0-34)
[2018-12-21] MEDS ORDERED: BISACODYL 5MG TABLET PO NR (15:00)
[2018-12-21 16:00] VITALS: BP 97/74
[2018-12-21] MEDS: DIGOXIN 125MCG TABLET PO SCH (17:46)
[2018-12-21] MEDS: HYDROCODONE/ACETAMINOPHEN 5/325MG TABLET PO PRN ×2 (17:46→22:11)
[2018-12-21 20:00] VITALS: BP 103/69
[2018-12-22] VITALS: BP 110/76
[2018-12-22] MEDS: HYDROCODONE/ACETAMINOPHEN 5/325MG TABLET PO PRN (03:04)
[2018-12-22 04:00] VITALS: BP 109/82
[2018-12-22 04:16] LABS: THYROXINE BINDING GLOBULIN 22 ug/mL (13-39)
[2018-12-22 06:04] LABS: BASOPHILS % 0.8 % (0.0-2.0); HEMATOCRIT. 41.2 % (36.0-48.0); HEMOGLOBIN. 13.8 g/dL (12.0-16.0); LYMPHOCYTES % 43.4 % (20.0-50.0); MEAN CORPUSCULAR HEMOGLOBIN 30.7 pg (28.0-32.0); MEAN CORPUSCULAR VOLUME 92.1 fL (81.0-99.0); MONOCYTES % 13.3 % (2.0-8.0); NEUTROPHILS % 41.5 % (40.0-76.0); RED BLOOD CELL COUNT 4.48 mill/uL (4.2-5.4); RED CELL DISTRIBUTION WIDTH 16.4 % (11.6-14.6)
[2018-12-22 06:04] LABS: CHLORIDE 106 mEq/L (98-107)
[2018-12-22] MEDS ORDERED: LEVOTHYROXINE SODIUM 100MCG TABLET PO SCH (07:20)
[2018-12-22 08:29] VITALS: BP 106/73
[2018-12-22] MEDS: POTASSIUM CHLORIDE 20MEQ TABLET SR PO SCH (09:41)
[2018-12-22] MEDS: APIXABAN 5 MG TABLET PO SCH (09:41)
[2018-12-22] MEDS: CARVEDILOL 3.125 MG TABLET PO SCH (09:42)
[2018-12-22] MEDS: PANTOPRAZOLE SODIUM 40 MG/VIAL IV SCH (09:42)
[2018-12-22 10:30] LABS: MEAN PLATELET VOLUME 8.7 fl (7.4-10.4); PLATELET 146 x1000/uL (130-400)
[2018-12-22] MEDS ORDERED: DOCUSATE SODIUM 100MG CAPSULE PO SCH (11:10)
[2018-12-22 11:50] VITALS: BP 103/63
[2018-12-22] MEDS: LEVOFLOXACIN 250MG TABLET PO SCH (12:04)
[2018-12-22 14:38] VITALS: BP 90/50
[2018-12-22 15:59] VITALS: BP 98/61
== END 2018-12-22 17:20 | DRG 871 ==
LOC: ER 18:25 → 6WST 21:11 → EDBEDREQ 21:15 → EDBEDREQTM 21:15 → ENRESERV 12-19 03:07
PROVIDERS: ADMIT Family Medicine Adult Medicine; ATTEND Family Medicine Adult Medicine
DX: A41.9 Sepsis, unspecified organism (principal); L89.323 Pressure ulcer of left buttock, stage 3; L89.154 Pressure ulcer of sacral region, stage 4; G93.41 Metabolic encephalopathy; E43 Unspecified severe protein-calorie malnutrition; N17.9 Acute kidney failure, unspecified; N39.0 Urinary tract infection, site not specified; I50.22 Chronic systolic (congestive) heart failure; I42.9 Cardiomyopathy, unspecified; E87.1 Hypo-osmolality and hyponatremia; R18.8 Other ascites; K92.2 Gastrointestinal hemorrhage, unspecified; Z68.1 Body mass index [BMI] 19.9 or less, adult; I08.1 Rheumatic disorders of both mitral and tricuspid valves; F11.10 Opioid abuse, uncomplicated; F19.10 Other psychoactive substance abuse, uncomplicated; K80.20 Calculus of gallbladder without cholecystitis without obstruction; K72.90 Hepatic failure, unspecified without coma; B96.20 Unspecified Escherichia coli [E. coli] as the cause of diseases classified elsewhere; J44.9 Chronic obstructive pulmonary disease, unspecified; B96.89 Other specified bacterial agents as the cause of diseases classified elsewhere; E87.6 Hypokalemia; E03.9 Hypothyroidism, unspecified; E86.0 Dehydration; E83.41 Hypermagnesemia; K74.60 Unspecified cirrhosis of liver; I11.0 Hypertensive heart disease with heart failure; E11.51 Type 2 diabetes mellitus with diabetic peripheral angiopathy without gangrene; B19.20 Unspecified viral hepatitis C without hepatic coma; D25.9 Leiomyoma of uterus, unspecified; E11.42 Type 2 diabetes mellitus with diabetic polyneuropathy; E78.5 Hyperlipidemia, unspecified; F03.90 Unspecified dementia, unspecified severity, without behavioral disturbance, psychotic disturbance, mood disturbance, and anxiety; F20.9 Schizophrenia, unspecified; I25.10 Atherosclerotic heart disease of native coronary artery without angina pectoris; I27.20 Pulmonary hypertension, unspecified; I48.2 Chronic atrial fibrillation; K59.00 Constipation, unspecified; Z79.01 Long term (current) use of anticoagulants; Z79.890 Hormone replacement therapy; Z86.73 Personal history of transient ischemic attack (TIA), and cerebral infarction without residual deficits; Z82.49 Family history of ischemic heart disease and other diseases of the circulatory system; Z82.5 Family history of asthma and other chronic lower respiratory diseases; Z87.891 Personal history of nicotine dependence
CPT/HCPCS: 36415; 71045; 80048; 80061; 80076; 80162; 82140; 82270; 82533; 82550; 82570; 82728; 83036; 83520; 83540; 83550; 83735; 83880; 84100; 84134; 84300; 84439; 84442; 84443; 84481; 84484; 84540; 85044; 86376; 86850; 86900; 87077; 87186; 93005; 93970; 96365; 96375; 99291; C9113; J1170; J1200; J1940; J3480; J7030; J7040; J7060; A4315

== ENCOUNTER 2022-06-15 02:22 | Inpatient (IN) | payer MEDICARE, MEDICAID ==
[~2022-06-15] VITALS: Ht 175.3 cm; Wt 70.3 kg
[~2022-06-15 02:22] MED LIST changes: +ASCO-339 PO; +BISA10SU62 RC; +CHOL100036 PO; -CLON0.1T PO; +DILT60TA35 PO; +DOCU-138 PO; +FURO80TA3 PO; -GABA-529 PO; +GABA100C PO; -HYDR-4001 PO; +HYDR-4009 PO; +IPRA3AMP31 IH; -LOSA25TA12 PO; +METO5TAB7 PO; +MIDO5TAB4 PO; +MVI WITH MINERALS PO; +NA P230E RC; +SPIR25TA6 PO; +THIA100T13 PO; +ZINC220T4 PO
[2022-06-15 04:02] LABS: BG BASE EXCESS -0.6 mmol/L (-2.0-2.0); BG CARBOXYHEMOGLOBIN 0.8 % (0.5-1.5); BG DEOXYHEMOGLOBIN 4.5 % (0.0-5.0); BG FRACTION INSPIRED OXYGEN 21; BG HCO3 ACT 24.3 mmol/L (22.0-26.0); BG METHEMOGLOBIN 0.1 % (0.0-1.5); BG OXYGEN SATURATION 95.5 % (92.0-98.5); BG OXYHEMOGLOBIN 94.6 % (94.0-97.0); BG PCO2 40.9 mmHg (35.0-45.0); BG PH 7.391 (7.350-7.450); BG PO2 75.5 mmHg (75.0-100.0); BG SAMPLE SITE RIGHT RADIAL; BG TOTAL HEMOGLOBIN 12.9 g/dL (12.0-18.0); BG VENT MODE ROOM AIR
[2022-06-15 05:05] LABS: CLARITY URINE TURBID (CLEAR); COLOR URINE DARK YELLOW (YELLOW); KETONES URINE TRACE (NEGATIVE); LEUKOCYTE ESTERASE URINE 3+ (NEGATIVE); NITRITE URINE POSITIVE (NEGATIVE); OCCULT BLOOD URINE 3+ (NEGATIVE); PH URINE 5.5 (4.5-8.0); PROTEIN URINE 1+ (NEGATIVE); SPECIFIC GRAVITY URINE 1.029 (1.005-1.030)
[2022-06-15 05:09] LABS: BASOPHILS % 0.6 % (0.0-2.0); EOSINOPHILS % 3.3 % (0.0-5.0); HEMATOCRIT. 37.3 % (36.0-48.0); HEMOGLOBIN. 12.6 g/dL (12.0-16.0); LYMPHOCYTES % 54.6 % (20.0-50.0); MEAN PLATELET VOLUME 9.5 fl (7.4-10.4); MONOCYTES % 12.5 % (2.0-8.0); PLATELET 166 x1000/uL (130-400); RED CELL DISTRIBUTION WIDTH 14.9 % (11.6-14.6)
[2022-06-15] MEDS ORDERED: CEFTRIAXONE 1 G PREMIX 50 ML IV ONE (05:15)
[2022-06-15 05:25] LABS: CHLORIDE 110 mEq/L (98-107)
[2022-06-15 06:44] LABS: INR 1.2; PROTHROMBIN TIME 12.3 sec (9.6-11.0)
[2022-06-15 09:00] VITALS: BP 157/89
[2022-06-15] MEDS ORDERED: CEFTRIAXONE 1 G PREMIX 50 ML IV SCH (09:30)
[2022-06-15] MEDS ORDERED: ONDANSETRON HCL 4MG/2ML INJ IV PRN (09:30)
[2022-06-15] MEDS ORDERED: ACETAMINOPHEN 325MG TABLET PO PRN (09:30)
[2022-06-15 09:35] VITALS: BP 157/89
[2022-06-15] MEDS ORDERED: CARV3.1242 MT (10:08)
[2022-06-15] MEDS ORDERED: GABA-533 MT (10:08)
[2022-06-15] MEDS ORDERED: LEVO25TA2 MT (10:22)
[2022-06-15 11:30] VITALS: BP 157/85
[2022-06-15] MEDS: CARVEDILOL 3.125 MG TABLET PO SCH ×2 (11:30→20:21)
[2022-06-15] MEDS: APIXABAN 5 MG TABLET PO SCH ×2 (11:30→16:17)
[2022-06-15] MEDS: GABAPENTIN 400MG CAPSULE PO SCH ×2 (11:30→16:17)
[2022-06-15] MEDS: DOCUSATE SODIUM 100MG CAPSULE PO SCH (16:17)
[2022-06-15 16:33] VITALS: BP 134/83
[2022-06-15] MEDS: DIGOXIN 125MCG TABLET PO SCH (17:06)
[2022-06-15 20:00] VITALS: BP 131/74
[2022-06-16] VITALS: BP 132/73
[2022-06-16 04:00] VITALS: BP 143/92
[2022-06-16] MEDS: CEFTRIAXONE 1,000 MG in DEXTROSE 5% WATER 50 ML IV SCH (05:33)
[2022-06-16 07:57] LABS: BASOPHILS % 0.4 % (0.0-2.0); EOSINOPHILS % 3.1 % (0.0-5.0); HEMATOCRIT. 34.3 % (36.0-48.0); HEMOGLOBIN. 11.9 g/dL (12.0-16.0); LYMPHOCYTES % 50.4 % (20.0-50.0); MEAN CORPUSCULAR HEMOGLOBIN 30.5 pg (28.0-32.0); MEAN CORPUSCULAR VOLUME 87.9 fL (81.0-99.0); MEAN PLATELET VOLUME 8.5 fl (7.4-10.4); NEUTROPHILS % 35.1 % (40.0-76.0); PLATELET 145 x1000/uL (130-400); RED CELL DISTRIBUTION WIDTH 14.5 % (11.6-14.6)
[2022-06-16 08:15] VITALS: BP 148/74
[2022-06-16] MEDS: DOCUSATE SODIUM 100MG CAPSULE PO SCH ×2 (09:20→16:43)
[2022-06-16] MEDS: GABAPENTIN 400MG CAPSULE PO SCH ×2 (09:20→16:42)
[2022-06-16] MEDS: LEVOTHYROXINE SODIUM 25MCG TABLET PO SCH (09:20)
[2022-06-16] MEDS: APIXABAN 5 MG TABLET PO SCH ×2 (09:20→16:43)
[2022-06-16] MEDS: CARVEDILOL 3.125 MG TABLET PO SCH ×2 (09:21→20:39)
[2022-06-16 11:23] LABS: CHLORIDE 111 mEq/L (98-107)
[2022-06-16 12:19] VITALS: BP 118/66
[2022-06-16 16:30] VITALS: BP 139/70
[2022-06-16] MEDS: DIGOXIN 125MCG TABLET PO SCH (17:33)
[2022-06-16 20:00] VITALS: BP 136/85
[2022-06-17] VITALS: BP 125/74
[2022-06-17 04:00] VITALS: BP 149/87
[2022-06-17] MEDS: CEFTRIAXONE 1,000 MG in DEXTROSE 5% WATER 50 ML IV SCH (04:48)
[2022-06-17] MEDS: LEVOTHYROXINE SODIUM 25MCG TABLET PO SCH (06:08)
[2022-06-17 08:03] VITALS: BP 147/97
[2022-06-17] MEDS: DOCUSATE SODIUM 100MG CAPSULE PO SCH ×2 (08:45→16:54)
[2022-06-17] MEDS: CARVEDILOL 3.125 MG TABLET PO SCH ×2 (08:46→21:10)
[2022-06-17] MEDS: APIXABAN 5 MG TABLET PO SCH ×2 (08:46→16:54)
[2022-06-17] MEDS: GABAPENTIN 400MG CAPSULE PO SCH ×2 (08:46→16:54)
[2022-06-17 12:00] VITALS: BP 127/58
[2022-06-17 16:30] VITALS: BP 134/66
[2022-06-17] MEDS: DIGOXIN 125MCG TABLET PO SCH (17:16)
[2022-06-17 20:00] VITALS: BP 140/86
[2022-06-18] VITALS: BP 145/84
[2022-06-18 01:33] VITALS: BP 145/84
[2022-06-18] MEDS ORDERED: LEVO-65 PO (01:49)
[2022-06-18] MEDS: LEVOTHYROXINE SODIUM 25MCG TABLET PO SCH (05:43)
[2022-06-18] MEDS: CEFTRIAXONE 1,000 MG in DEXTROSE 5% WATER 50 ML IV SCH (05:43)
[2022-06-18] MEDS: CARVEDILOL 3.125 MG TABLET PO SCH (09:48)
[2022-06-18] MEDS: GABAPENTIN 400MG CAPSULE PO SCH (09:48)
[2022-06-18] MEDS: APIXABAN 5 MG TABLET PO SCH (09:50)
[2022-06-18] MEDS: DOCUSATE SODIUM 100MG CAPSULE PO SCH (09:50)
== END 2022-06-18 10:10 | DRG 689 ==
LOC: ER 02:22 → 6WST 05:14
PROVIDERS: ADMIT Family Medicine Adult Medicine; ATTEND Family Medicine Adult Medicine
DX: N39.0 Urinary tract infection, site not specified (principal); G93.41 Metabolic encephalopathy; I48.91 Unspecified atrial fibrillation; K74.60 Unspecified cirrhosis of liver; D72.819 Decreased white blood cell count, unspecified; I50.9 Heart failure, unspecified; J44.9 Chronic obstructive pulmonary disease, unspecified; I25.10 Atherosclerotic heart disease of native coronary artery without angina pectoris; K21.9 Gastro-esophageal reflux disease without esophagitis; Z87.01 Personal history of pneumonia (recurrent); Z20.822 Contact with and (suspected) exposure to COVID-19
CPT/HCPCS: 36415; 36600; 71045; 80048; 80053; 80162; 81003; 82140; 82375; 82805; 83605; 84484; 85025; 87426; 93005; 93970; 99291; J0696; J7060

== ENCOUNTER 2022-12-01 12:17 | Emergency (ER) | payer MEDICARE, MEDICAID ==
[~2022-12-01] VITALS: Ht 170.2 cm; Wt 61.0 kg
[~2022-12-01 12:17] MED LIST changes: -ASCO-339 PO; -BISA10SU62 RC; +CARV3.1242 MT; -COR12 PO; -DIGO-26 PO; +DIGO-34 PO; -DILT60TA35 PO; -FURO-151 MT; -FURO80TA3 PO; +GABA-533 MT; -GABA100C PO; -HYDR-4009 PO; -IPRA3AMP31 IH; -IPRA3AMP9 INH; +LEVO-65 PO; +LEVO25TA2 MT; -METO5TAB7 PO; -MIDO5TAB4 PO; -NA P230E RC; -SPIR25TA6 PO; -THIA100T13 PO; -ZINC220T4 PO
[2022-12-01 12:25] VITALS: BP 155/92
[2022-12-01 12:58] LABS: BASOPHILS % 0.3 % (0.0-2.0); EOSINOPHILS % 2.5 % (0.0-5.0); HEMATOCRIT. 38.1 % (36.0-48.0); LYMPHOCYTES % 44.9 % (20.0-50.0); MEAN CORPUSCULAR HEMOGLOBIN 28.5 pg (28.0-32.0); MEAN CORPUSCULAR VOLUME 83.5 fL (81.0-99.0); MEAN PLATELET VOLUME 8.3 fl (7.4-10.4); MONOCYTES % 12.6 % (2.0-8.0); NEUTROPHILS % 39.7 % (40.0-76.0); PLATELET 196 x1000/uL (130-400); RED BLOOD CELL COUNT 4.56 mill/uL (4.2-5.4); RED CELL DISTRIBUTION WIDTH 15.3 % (11.6-14.6)
[2022-12-01 13:05] LABS: CHLORIDE 111 mEq/L (98-107)
[2022-12-01 13:22] LABS: ETHANOL BLOOD < 10 mg/dL
[2022-12-01 14:55] LABS: CLARITY URINE TURBID (CLEAR); COLOR URINE DARK YELLOW (YELLOW); KETONES URINE TRACE (NEGATIVE); LEUKOCYTE ESTERASE URINE 3+ (NEGATIVE); NITRITE URINE NEGATIVE (NEGATIVE); OCCULT BLOOD URINE 2+ (NEGATIVE); PH URINE 5.5 (4.5-8.0); PROTEIN URINE 2+ (NEGATIVE); SPECIFIC GRAVITY URINE 1.024 (1.005-1.030)
[2022-12-01 15:17] LABS: *AMPHETAMINES SCREEN URINE NEGATIVE (NEGATIVE); *BARBITURATES SCREEN URINE NEGATIVE (NEGATIVE); *BENZODIAZEPINES SCREEN URINE NEGATIVE (NEGATIVE); *COCAINE SCREEN URINE NEGATIVE (NEGATIVE); CANNABINOID URINE SCREEN NEGATIVE (NEGATIVE); METHADONE URINE SCREEN NEGATIVE (NEGATIVE); OPIATES URINE SCREEN NEGATIVE (NEGATIVE); PHENCYCLIDINE URINE SCREEN NEGATIVE (NEGATIVE)
[2022-12-01] MEDS ORDERED: CEFTRIAXONE 1GM PREMIX 50 ML IV ONE (16:15)
[2022-12-01] MEDS ORDERED: CEFP200T13 MT (16:21)
[2022-12-01] MEDS ORDERED: CEFTRIAXONE SODIUM 1 G/VIAL IM NR (17:00)
== END 2022-12-01 20:03 ==
LOC: ER 12:45
DX: N39.0 Urinary tract infection, site not specified (principal); I50.9 Heart failure, unspecified; J44.1 Chronic obstructive pulmonary disease with (acute) exacerbation
CPT/HCPCS: 36415; 70450; 71045; 80053; 80305; 80307; 80320; 80329; 81003; 82140; 83605; 83880; 84443; 84484; 85025; 87077; 87086; 87186; 93005; 96372; 99285; J0696; G0480